=== PATIENT | female | born 1930 ===

== ENCOUNTER 2017-10-31 18:51 | Inpatient (IN) | payer MEDICARE, MEDICAID ==
[2017-10-31] MEDS ORDERED: Ondansetron 40 MG VIAL* 2 MG/ML 20 ML VIAL IV PRN (20:41)
[2017-10-31] MEDS: traMADol TAB* 50 MG PO PRN (21:02)
--- NOTE | 2017-10-31 21:57 | RAD ---
Indication: Fall, head injury. CT of the brain was performed without IV contrast. Ventricular structures are midline. No midline shift is noted. Central and cortical atrophy is noted. Periventricular lucency consistent with chronic ischemic White matter change is noted. Mastoid air cells and paranasal sinuses are unremarkable. IMPRESSION: Atrophy. Chronic ischemic White matter change. No intracranial mass or hemorrhage is present.
--- NOTE | 2017-10-31 21:59 | RAD ---
Indication: Fall, neck injury and neck pain CT of the cervical spine was obtained in the axial plane. Sagittal and coronal reconstructed images were obtained. Skull base demonstrates no evidence of fracture. The C1 ring is intact. Degenerative changes of the atlantoaxial joint is noted. The vertebral bodies appear normal in height. No evidence of fracture is noted. Spinous processes are unremarkable. Spinal canal is intact. At C2-C3 no focal protrusion is noted. No central or foraminal stenosis is noted. Degenerative disc disease at C3-C4 with minimal spondylitic ridge. No central or foraminal stenosis is identified. At C4-C5, C5-C6 minimal degenerative disc disease is noted. No central or foraminal stenosis is noted. Ventral osteophyte formation is noted at C4-C5, C5-C6. At C6-C7 and C7-T1 no spondylitic ridge is noted. No central or foraminal stenosis is identified. IMPRESSION: No fracture of the cervical spine is noted.
--- NOTE | 2017-10-31 22:05 | RAD ---
Indication: Left hip fracture. Preop. Single frontal view of the chest performed at 2144 hours was reviewed. No prior study is available. No mediastinal shift is noted. Heart is of normal size and configuration. Lung galvan appear clear. IMPRESSION: NO ACTIVE CARDIOPULMONARY DISEASE IS NOTED.
[2017-10-31] MEDS: Cyclobenzaprine TAB* 10 MG PO PRN (23:50)
--- NOTE | 2017-10-31 23:51 | HP ---
CC: Dr. Carrillo, Dr. Weber * HISTORY AND PHYSICAL: DATE OF ADMISSION: 10/31/17 PRIMARY CARE PROVIDER: Dr. Carrillo. ATTENDING PHYSICIAN WHILE IN HOSPITAL: Hamilton Knight MD * (report dictated by Asad Live NP) CONSULTING ORTHOPEDIST: Dr. Weber. CHIEF COMPLAINT: Fall. HISTORY OF PRESENT ILLNESS: Mrs. Khanna is an 87-year-old female patient that appears to reside at the [facility]. She has mild dementia, history of hypertension, history of arthritis, but she denies having any history of heart attacks or strokes. She denies having any history of cancers or COPD. She is coming in today, apparently she states that she fell today and I asked her if she slipped, if she tripped, if she fainted, she states all she remembers that she was walking out of her apartment to go to the garden, she fell, landed on her left hip, she could not get up, had a significant amount of pain. She states that she did lose consciousness and faint after she fell. She states that she did not hit her head. She denied having any chest pain or shortness of breath prior to or after. She does state that she can typically walk up a flight of stairs and she does not get chest pain or shortness of breath according to the patient. She does state the last month she had the flu, but since then has not had any worsening cough, shortness of breath, or anymore fevers. She had no episodes of nausea or vomiting with the exception she did have one episode with nausea and vomiting here at [facility]. She denied any chest pain. Her biggest complaint was when she fell and she came to , she knew where she was. She recognized the surrounding. She was hovering for help, staff came to her aid. They called 911 and she went to [facility] where she was found that she had what appeared to be a left femoral neck, hip fracture. At that point, she was transferred to [facility] for further evaluation. Again, there has been no recent change in medications, no recent complaints of chest pain or shortness of breath. There was, however, the syncope after she fell. Because of the fracture, we were asked to evaluate for admission. PAST MEDICAL HISTORY: Significant for: 1. Dementia. 2. Hypertension. 3. Osteoarthritis. 4. Vertigo. PAST SURGICAL HISTORY: She states she knows she has had surgeries, but she cannot really remember what surgery she has had. MEDICATIONS: Home meds according to the [facility] list: 1. Lisinopril 10 mg daily. 2. Aspirin 81 mg daily. ALLERGIES TO MEDICATIONS: Include no known drug allergies. FAMILY HISTORY: She states her mother of old age and she does not really remember her father's history. SOCIAL HISTORY: She does not drink. She does not smoke. She lives at [facility]. She states that surrogate decision maker is her son, Delroy. REVIEW OF SYSTEMS: There is no documented fever. She denies having any significant weight change. There is no double vision. She denies having any ear discharge. There is no rhinorrhea. No sore throat. No thyroid enlargement. She denies having any chest pain. There is no orthopnea. There is no nocturnal dyspnea. She denied having any abdominal pain. There was one episode of nausea and vomiting while she was here at [facility]. She denies having any chest pain or any shortness of breath. There was no again abdominal pain. No dysuria. There has been no frequency. There was a loss of consciousness after the fall. There is no dysuria. No frequency. No seizure. Review of 14 systems was completed, all others negative. PHYSICAL EXAMINATION GENERAL: At this time, Mrs. Gomez is an 87-year-old female patient. She is sitting in the hospital bed. She does not appear to be in any acute distress. VITAL SIGNS: Blood pressure 122/44, pulse of 64, respirations 18, O2 sat 96%, temperature 96.9. HEENT: Head: Atraumatic, normocephalic. Eyes: EOMs are intact. Sclerae anicteric and not pale. Throat: Oral mucosa appears to be moist. No oropharyngeal erythema. NECK: Supple. LUNGS: Clear to auscultation bilaterally. No wheezes, rales, or rhonchi. HEART: Sounds S1, S2. She had a regular rate and rhythm. No murmurs, rubs, or gallops. ABDOMEN: Soft, flat, nontender. Bowel sounds are present. EXTREMITIES: Pulses were 2+ throughout. The left leg is shortened and rotated. Distal CSM checks were intact. NEUROLOGIC: She is oriented to self. She is noxious in the hospital. She is confused to the month. Her speech is clear. Tongue is midline. Hvac Designer were equal. No gross focal deficits. SKIN: Her skin is intact. She does have a skin tear to the left elbow. DIAGNOSTIC STUDIES/LAB DATA: The laboratory data from the [place] revealed labs today she had an EKG that does show a normal sinus rhythm. There are no ST elevations. She had no T-wave inversions. She had a PVC, rate of 77 with a normal sinus rhythm. No previous for comparison. She did have a hip x-ray today, which does show left hip fracture. She did have a sodium of 139, potassium of 4.2, chloride of 103, bicarb of 29, BUN of 15, creatinine of 0.8, glucose 125, calcium 8.8. Total bili is 0.2, AST 20, ALT 15, alk phos 98, troponin 0.07, albumin of 3.2. WBC was 6.62, hemoglobin 13.6, RBC 4.70, hematocrit of 41.4, platelet count of 331. UA was not obtained at this point, one will be obtained here. Old medical records were reviewed. ASSESSMENT AND PLAN: Mrs. Gomez is an 87-year-old female patient coming in from [facility] today with complains of a fall with syncope after the fall according to the patient. We were asked to evaluate for admission after she was found she had a hip fracture. She will be admitted under inpatient status for: 1. Left hip fracture. At this point because of the syncope, I would like to get an echo and a CT brain to make sure there is not any underlying pathology. I suspect the syncope problem was from after she fell and hitting her head, so I would like to CT that brain to make sure it is okay. Also, I would like to do a CT cervical spine as well because of the fall, although she is not having any neck pain, her biggest complaint is left hip pain. I also go and get an echo. Repeat the EKG, cycle troponins, placed on telemetry. If the troponins are stable and the echo appears to be stable, then at this point she would be considered a moderate risk for the proposed procedure and she will be medically optimized. Reason she has moderate risk is because of her advanced age at 87 and history of dementia, but other than that she had no history of coronary artery disease, diabetes, or heart failure and I did touch base with Dr. Weber. I have ordered medications for pain control, neurovascular checks. 2. Dementia. I continue with supportive care, will be on look out for postoperative delirium. 3. Hypertension. I am holding her lisinopril. Blood pressure here stable. 4. Arthritis. I have ordered p.r.n. Tylenol. 5. Code status. She does have a do not resuscitate order in place. I did touch base with the patient's son, who said that that is their wish. He will talk to the patient's [id number] and healthy proxy and discussed that they would like to proceed with the DNR during the proposed procedure. 6. Fluids, electrolytes, and nutrition. Regular diet. Coumadin has been ordered. She will be n.p.o. after midnight. Normal saline at 75 mL/hour has been ordered. TIME SPENT: On admission 60 minutes, greater than half the time spent face-to- face with the patient obtaining my history and physical, other half time spent going over the plan of care with the patient and implementing plan of care. I did discuss the plan of care with my attending, Dr. Knight; he is in agreement. ASAD LIVE NP [id number]/[facility] #: [id number] RAISA
[2017-11-01] MEDS: NS 0.9% 1000 ML* 1,000 ML IV SCH ×2 (00:30→15:39)
[2017-11-01] MEDS: Heparin VIAL(*) 5000 UNITS/ML VIAL (FIVE THOUSAND) SUBCUT SCH ×4 (00:37→22:59)
[2017-11-01 01:12] LABS: INR 0.92 (0.77-1.02)
[2017-11-01 01:24] LABS: EGFR Non-African American 64.7 (>60)
[2017-11-01] MEDS: Morphine VIAL* 4 MG/ML VIAL (1 ml vial) IV PRN ×3 (03:57→16:14)
[2017-11-01 04:32] LABS: ABS Basophils 0 10^3/ul (0-0.2); ABS Eosinophils 0 10^3/ul (0-0.6); ABS Lymphocytes 1.1 10^3/ul (1.0-4.8); ABS Monocytes 0.7 10^3/ul (0-0.8); ABS Neutrophils 10.4 10^3/ul (1.5-7.7); ABS Nucleated RBC 0 10^3/ul; Eosinophil % 0 % (0-6); Hematocrit 36 % (35-47); Hemoglobin 11.7 g/dl (12.0-16.0); Lymphocyte % 8.9 % (25-47); Mean Corpuscular HGB Conc 33 g/dl (31-36); Mean Corpuscular Hemoglobin 29 pg (27-31); Mean Corpuscular Volume 87 fL (80-97); Mean Platelet Volume 8.1 um3 (7.4-10.4); Nucleated Red Blood Cells % 0; Platelet Count 250 10^3/ul (150-450); Red Blood Count 4.12 10^6/ul (4.0-5.4); Red Cell Distribution Width 15 % (10.5-15); White Blood Count 12.3 10^3/ul (3.5-10.8)
[2017-11-01 04:45] LABS: EGFR Non-African American 69.5 (>60)
--- NOTE | 2017-11-01 07:47 | RAD ---
HISTORY: Fall, pain COMPARISONS: None VIEWS: 5, Frontal and lateral views of the left femur FINDINGS: BONE DENSITY: There is diffuse osteopenia. BONES: There is an angulated intertrochanteric fracture of the left femur. JOINTS: There is mild osteoarthritis of the left hip and left knee. ALIGNMENT: There is no dislocation. SOFT TISSUES: Unremarkable. OTHER FINDINGS: None. IMPRESSION: 1. ANGULATED INTERTROCHANTERIC FRACTURE OF THE PROXIMAL LEFT FEMUR. 2. OSTEOPENIA.
--- NOTE | 2017-11-01 10:07 | CONSULT ---
Consult Consult: Full consultation report dictated. Made NPO, held heparin. If medically optimized will plan for short gamma nail today. If surgery is not today will need diet and anticoag overnight then hold again for surgery when rescheduled.
--- NOTE | 2017-11-01 10:53 | ECHO ---
Patient: NADYA ROBERTS [facility] Rec#: [id number] : 1930 Date: 11/01/2017 Age: 87y Height: 170 cm / 66.9 in Weight: 60 kg / 132.2 lbs Sex: F BSA: 1.7 Room#: [facility] Admit Date#: 10/31/2017 Type: Inpatient Referring: Asad Live NP Reading: Camila Colmenares MD [place] Winder: Olivia Rincon RN RDCS CC: Jane Carrillo MD Transthoracic Echocardiogram Indication: Syncope BP: 154/60 HR: 71 Rhythm: NSR with PVCs Findings History: HTN, mild dementia, vertigo, osteoarthritis, admitted with left hip fracture Technical Comments: The study quality is fair. The study was technically limited due to the patient's inability to lay in the left lateral decubitus position. Completed at 0910. Left Ventricle: The left ventricular chamber size is decreased. Moderate concentric left ventricular hypertrophy is observed. There is increased basal septal hypertrophy noted without evidence of an increased gradient across the left ventricular outflow tract. Global left ventricular wall motion and contractility are within normal limits. The left ventricle appears hyperdynamic. The estimated ejection fraction is greater than 65%. Abnormal left ventricular diastolic filling is observed, consistent with impaired relaxation. The patient was unable to perform a Valsalva maneuver. Left Atrium: The left atrium is moderately dilated. Right Ventricle: The right ventricular cavity size is normal. The right ventricular global systolic function is normal. Right Atrium: The right atrium is mildly dilated. There is evidence of an atrial septal aneurysm. Aortic Valve: The aortic valve is trileaflet. The aortic valve leaflets are mildly thickened. There is aortic annular calcification. There is mild aortic regurgitation. There is no evidence of aortic stenosis. Mitral Valve: There is posterior mitral annular calcification. The mitral valve leaflets are mildly thickened. There is a trace of mitral regurgitation. There is borderline mitral stenosis. Tricuspid Valve: The tricuspid valve leaflets are normal. There is moderate tricuspid regurgitation. The right ventricular systolic pressure is estimated at 46 mmHg. There is evidence of moderate pulmonary hypertension. Pulmonic Valve: The pulmonic valve appears normal. There is mild to moderate pulmonic regurgitation. There is no pulmonic stenosis. Pericardium: There is no significant pericardial effusion. A pericardial fat pad is visualized. Aorta: There is no dilatation of the ascending aorta. The aortic arch is not well visualized. There is no dilation of the aortic root. Pulmonary Artery: The main pulmonary artery appears normal. Venous: The venous system is not well visualized. The inferior vena cava is not visualized. Conclusions The left ventricular chamber size is decreased. Moderate concentric left ventricular hypertrophy and increased basal septal hypertrophy noted No gradient across the left ventricular outflow tract. The left ventricle appears hyperdynamic. The estimated ejection fraction is greater than 65%. Abnormal left ventricular diastolic filling is observed, consistent with impaired relaxation. The right ventricular global systolic function is normal. There is mild aortic regurgitation. There is mitral annular calcification. There is a trace of mitral regurgitation. There is borderline mitral stenosis. There is moderate tricuspid regurgitation. There is evidence of moderate pulmonary hypertension: 46 mmHg. No prior echo to compare. Measurements Name Value Normal Range RVIDd (AP) 2D 2.4 cm (0.9 - 2.6) RVDdMajor (2D) 2.9 cm (2.2 - 4.4) RAd ISD 4CH 5.1 cm (3.4 - 4.9) RA (A4C)W 3.5 cm (2.9 - 4.6) IVSd (2D) 1.3 cm (0.6 - 1) LVPWd (2D) 1.3 cm (0.6 - 1) LVIDd (2D) 3.2 cm (3.6 - 5.4) LVIDs (2D) 2.2 cm - LV FS (2D) 31 % (25 - 45) Aortic Annulus 1.8 cm (1.4 - 2.6) Ao root diameter (2D) 3 cm (2.1 - 3.5) Ascending Ao 3.1 cm (2.1 - 3.4) LA dimension (AP) 2D 3 cm (2.3 - 3.8) LAd ISD 4CH 6.4 cm (2.9 - 5.3) LA ISD 4CH W 4.4 cm (2.5 - 4.5) Name Value Normal Range LA ESV SP 4CH (A/L) 68 ml - LA ESV SP 2CH (A/L) 77 ml - LA ESV BP (A/L) 75 ml - LA ESV BP (A/L) index 44.1 ml/m2 - LA ESV SP 4CH (MOD) 66 ml - LA ESV SP 2CH (MOD) 73 ml - Name Value Normal Range MV E-wave Vmax 0.86 m/sec - MV deceleration time 321 msec - MV A-wave Vmax 1.2 m/sec - MV E:A ratio 0.7 ratio - LV septal e' Vmax 0.06 m/sec - LV lateral e' Vmax 0.07 m/sec - LV E:e' septal ratio 14.3 ratio - LV E:e' lateral ratio 12.3 ratio - Name Value Normal Range AV Vmax 1.7 m/sec - AV VTI 34.2 cm - AV peak gradient 11.1 mmHg - AV mean gradient 5.8 mmHg - LVOT Vmax 1.3 m/sec - LVOT VTI 26.2 cm - LVOT peak gradient 6.7 mmHg - LVOT mean gradient 4.2 mmHg - Name Value Normal Range MV Vmax 1.4 m/sec - MV VTI 31 cm - MV peak gradient 7.8 mmHg - MV mean gradient 2.9 mmHg - MV PHT 98 msec - MVA (PHT) 2.2 cm2 - Name Value Normal Range TR Vmax 3.1 m/sec - TR peak gradient 38 mmHg - RAP 8 mmHg - RVSP 46 mmHg - Name Value Normal Range PV Vmax 1.1 m/sec -
[2017-11-01] MEDS: Cyclobenzaprine TAB* 10 MG PO PRN (11:03)
--- NOTE | 2017-11-01 12:00 | PN ---
Subjective Date of Service: 11/01/17 Interval History: Patient seen and examined. Confused, but appropriate and can make needs known. Staff had difficulty with Dr. Richelle collins at bedside for placement. Denies chest pain, no SOB, no n/v. Patient states her hip is "sore". Objective Active Medications: Acetaminophen (Tylenol Tab*) 650 mg PO Q4H PRN PRN Reason: FEVER/PAIN Cyclobenzaprine HCl (Flexeril Tab*) 5 mg PO BID PRN PRN Reason: SPASMS Last Admin: 11/01/17 11:03 Dose: 5 mg Sodium Chloride (Ns 0.9% 1000 Ml*) 1,000 mls @ 75 mls/hr IV PER RATE TAYLER Last Admin: 11/01/17 00:30 Dose: 75 mls/hr Morphine Sulfate (Morphine Vial*) 1 mg IV Q4H PRN PRN Reason: PAIN - MILD Last Admin: 11/01/17 08:41 Dose: 1 mg Ondansetron HCl (Zofran 40 Mg Vial*) 4 mg IV Q6H PRN PRN Reason: NAUSEA Last Admin: 10/31/17 20:43 Dose: 4 mg Tramadol HCl (Ultram*) 25 mg PO Q8H PRN PRN Reason: PAIN Last Admin: 10/31/17 21:02 Dose: 25 mg Vital Signs - 8 hr 11/01/17 11/01/17 11/01/17 03:57 04:06 04:07 Temperature Pulse Rate Respiratory 18 18 18 Rate Blood Pressure (mmHg) O2 Sat by Pulse Oximetry 11/01/17 11/01/17 11/01/17 07:16 07:17 08:41 Temperature 98.2 F Pulse Rate 73 Respiratory 18 18 16 Rate Blood Pressure 128/48 (mmHg) O2 Sat by Pulse 96 Oximetry 11/01/17 11/01/17 11/01/17 08:42 10:28 11:03 Temperature Pulse Rate Respiratory 18 18 18 Rate Blood Pressure (mmHg) O2 Sat by Pulse Oximetry 11/01/17 11:20 Temperature 98.3 F Pulse Rate 75 Respiratory 18 Rate Blood Pressure 147/60 (mmHg) O2 Sat by Pulse 98 Oximetry Oxygen Devices in Use Now: None Appearance: Alert, baseline confusion Eyes: PERRLA Ears/Nose/Mouth/Throat: Mucous Membranes Moist Neck: NL Appearance and Movements; NL JVP, Trachea Midline Respiratory: Symmetrical Chest Expansion and Respiratory Effort, Clear to Auscultation Cardiovascular: NL Sounds; No Murmurs; No JVD, RRR Abdominal: NL Sounds; No Tenderness; No Distention Extremities: No Edema, No Clubbing, Cyanosis Neurological: - - confused, but answers appropriately Nutrition: - - NPO Result Diagrams: 11/01/17 04:20 11/01/17 04:20 Microbiology and Other Data: Microbiology 11/01/17 03:40 Nasal Screen MRSA (PCR)(DAVID) - Final Nasal Mrsa Not Detected Diagnostic Imaging: CARDIAC ECHO Conclusions The left ventricular chamber size is decreased. Moderate concentric left ventricular hypertrophy and increased basal septal hypertrophy noted No gradient across the left ventricular outflow tract. The left ventricle appears hyperdynamic. The estimated ejection fraction is greater than 65%. Abnormal left ventricular diastolic filling is observed, consistent with impaired relaxation. The right ventricular global systolic function is normal. There is mild aortic regurgitation. There is mitral annular calcification. There is a trace of mitral regurgitation. There is borderline mitral stenosis. There is moderate tricuspid regurgitation. There is evidence of moderate pulmonary hypertension: 46 mmHg. No prior echo to compare. Assess/Plan/Problems-Billing Assessment: This is an 87 year old female with history of dementia.. - Patient Problems (1) Intertrochanteric fracture of left hip Code(s): S72.142A - DISPLACED INTERTROCHANTERIC FRACTURE OF LEFT FEMUR, INIT SNOMED Code(s): 515613800 Comment: - Questionable syncope at time of fall - ECHO as above - EKG was junctional last night, appear to have P waves on tele today - CT brain and cspine negative for any acute process - Sugar is elevated but patient states no hx of diabetes but she is a poor historian, will place on lispro SS to aid in post op healing - Collins placed by Dr. Peoples, as nursing staff had issues placing cath - Plan for OR today as per ortho for gamma nail - Given advanced age and dementia, the patient is at least moderate risk, or 2.3% CV risk for procedure given above factors. Standard surgical risks and complications should be handled by surgical team and are outside the scope of this medical evaluation. - Recommend close post-operative monitoring and DVT prophylaxis, IS and early ambulation to minimize post-operative complications - Patient is a full code as per chart notes, family is not present for me to discuss with them (2) Dementia Code(s): F03.90 - UNSPECIFIED DEMENTIA WITHOUT BEHAVIORAL DISTURBANCE SNOMED Code(s): 54558923 Comment: - Higher risk for post-operative delerium, would limit narcotics as is feasible (3) Hypertension Code(s): I10 - ESSENTIAL (PRIMARY) HYPERTENSION SNOMED Code(s): 68240834 Comment: - On lisinopril at home - BP stable at present, monitor BP post op (4) DVT prophylaxis Code(s): FQZ4202 - SNOMED Code(s): 240710338 Comment: - As per ortho (5) Full code status Code(s): Z78.9 - OTHER SPECIFIED HEALTH STATUS SNOMED Code(s): 251835985 Status and Disposition: Coordinated with Arlette Mccauley PA-c.
[2017-11-01] MEDS ORDERED: Dextrose 50% Syringe 50 ML* 25 GM/50 ML SYRINGE IV PUSH PRN (12:07)
--- NOTE | 2017-11-01 14:24 | CONS ---
CONSULTATION REPORT: DATE OF CONSULT: 11/01/17 PROVIDER: Vipin Weber MD. PRIMARY CARE PROVIDER: Dr. Carrillo. CHIEF COMPLAINT: Fall at home. HISTORY OF PRESENT ILLNESS: Ms. Khanna is an 87-year-old female who is a resident at the [facility]. She lives there independently, but this is an assisted living facility in which she gets help with all of her daily activities. She walks with a walker on her own inside of the house. She is supposed to have assistance when going outside of the house, but she does sometimes leave her home to go outside with her walker without assistance. She has a history of dementia, hypertension, arthritis. The patient states that she was leaving her house to go outside when she fell. She does not recall if she fainted, if she tripped. She simply states that she went outside, fell, does not recall losing consciousness, hitting her head, or hurting any other area, but she was unable to get up and had to call for help. She was first brought to the [facility] where she was diagnosed with a left femoral neck fracture. She was transported to [facility], diagnosed with angulated intertrochanteric fracture of the proximal left femur and was admitted to the hospital. Today, the patient states that she has left lower extremity pain, worse with movement, better with rest. She reports that she does not have any pain anywhere else in her right leg or in her upper extremities. She denies any chest pain or shortness of breath. The patient's history was confirmed with her sons, Delroy and Jack, who were in the room as well. PAST MEDICAL HISTORY: Significant for dementia, hypertension, osteoarthritis, and vertigo. PAST SURGICAL HISTORY: The patient had some sort of abdominal surgery. She has a midline scar, but she does not remember what it is from. She does not report any issues with anesthesia. MEDICATIONS: Lisinopril 10 mg and aspirin 81 mg daily. ALLERGIES TO MEDICATIONS: No known drug allergies, though did not tolerate morphine when given during this hospital stay; her blood pressure dropped significantly. FAMILY HISTORY: Mother passed of old age. SOCIAL HISTORY: The patient does not drink. She does not smoke. She uses a walker to ambulate at home. She does ambulate outside of her home with her walker short distances, but she is supposed to have assistance from another person for this. REVIEW OF SYSTEMS: Difficult to gauge due to dementia. General: The patient does not have a documented fever. HEENT: She reports that she did not hit her head. Cardio: Denies any chest pain. Denies any history of heart attack. Respiratory: Denies any difficulty breathing. GI: Denies any abdominal pain. Denies nausea, vomiting, or diarrhea. Skin: Known skin tear on the left elbow. PHYSICAL EXAM: Vital Signs: Temperature 98.2, pulse rate 73, respiratory rate 18, oxygen saturation 96%, blood pressure 128/48. General: The patient is lying comfortably in bed. She does not appear to be in any distress. She does vocalize that she does not want her left leg touched due to pain. HEENT: Head atraumatic, normocephalic. Eyes: EOMI. Neck: Cervical spine nontender. Respiratory: Normal rate and effort of breathing. Heart: S1, S2. Regular rhythm. Abdomen: Bowel sounds normoactive throughout. Soft, nontender, without any masses. Midline well healed surgical abdominal scar from the umbilicus down to the pubic region. Extremities: 2+ dorsalis pedis pulse bilateral lower extremities. The patient is in bed with both knees and hips flexed. Skin without any open lesions, abrasions, or ecchymosis. No obvious deformity. She did demonstrate active motion of the left ankle, knee, and hip, though much pain with left hip range of motion. Calves are supple and nontender. Thighs are soft. Skin: The patient has a skin tear of the left elbow. Neurologic: The patient is confused, but she carries on relatively appropriate conversation. Her history report is seemingly accurate for some point in her life but not current, such that she states that she still lives with her son, Jack. When confirmed with family, she now lives in [place] and used to live with her son, Jack. Her history is unreliable at this time. DIAGNOSTIC STUDIES/LAB DATA: Femur x-ray demonstrates an angulated intertrochanteric fracture of the proximal left femur and osteopenia. Cervical spine x-ray, no fracture of the cervical spine is noted. Chest x-ray, no active cardiopulmonary disease noted. Brain CT, atrophy, chronic ischemic white matter change, no intracranial mass or hemorrhage present. EKG, junctional rhythm present, absent P waves, slow , nonspecific interventricular conduction delay. ASSESSMENT: Angulated intertrochanteric fracture of the proximal left femur with osteopenia as well. PLAN: The patient will have an echo and troponins. She is on telemetry. We will await echo results and interpretation for medical optimization from medicine. The patient will be n.p.o. for now. We will hold her anticoagulation. She will go to the operating room for a Gamma nail with Dr. Weber on 11/01/17 if she is medically optimized and if not we will aim for 12/13. This case was discussed with both the patient's sons, Jack and Delroy, who understand that they will need to be present in order to sign consents prior to any surgical proceeding. KIERA BERNAL [id number]/CPS #: [id number] MTDD
[2017-11-01] MEDS: Insulin LISPRO* 1 UNITS UNIT SUBCUT SCH ×2 (17:38→22:16)
[2017-11-01] MEDS: traMADol TAB* 50 MG PO PRN (17:43)
[2017-11-01 18:24] LABS: ABS Basophils 0 10^3/ul (0-0.2); ABS Eosinophils 0 10^3/ul (0-0.6); ABS Lymphocytes 1.1 10^3/ul (1.0-4.8); ABS Neutrophils 9.1 10^3/ul (1.5-7.7); ABS Nucleated RBC 0 10^3/ul; Eosinophil % 0 % (0-6); Hematocrit 35 % (35-47); Hemoglobin 11.6 g/dl (12.0-16.0); Lymphocyte % 9.6 % (25-47); Mean Corpuscular HGB Conc 33 g/dl (31-36); Mean Corpuscular Hemoglobin 29 pg (27-31); Mean Corpuscular Volume 87 fL (80-97); Mean Platelet Volume 8.1 um3 (7.4-10.4); Nucleated Red Blood Cells % 0; Platelet Count 261 10^3/ul (150-450); Red Blood Count 4.05 10^6/ul (4.0-5.4); Red Cell Distribution Width 15 % (10.5-15); White Blood Count 11.2 10^3/ul (3.5-10.8)
[2017-11-01 18:33] LABS: EGFR Non-African American 67.5 (>60)
[2017-11-01 18:36] LABS: INR 0.9 (0.77-1.02)
[2017-11-02 06:23] LABS: ABS Basophils 0.1 10^3/ul (0-0.2); ABS Eosinophils 0 10^3/ul (0-0.6); ABS Lymphocytes 1.7 10^3/ul (1.0-4.8); ABS Monocytes 1.3 10^3/ul (0-0.8); ABS Neutrophils 7.8 10^3/ul (1.5-7.7); ABS Nucleated RBC 0 10^3/ul; Eosinophil % 0.2 % (0-6); Hematocrit 34 % (35-47); Hemoglobin 11.3 g/dl (12.0-16.0); Lymphocyte % 15.2 % (25-47); Mean Corpuscular HGB Conc 34 g/dl (31-36); Mean Corpuscular Hemoglobin 29 pg (27-31); Mean Corpuscular Volume 86 fL (80-97); Mean Platelet Volume 8.1 um3 (7.4-10.4); Nucleated Red Blood Cells % 0; Platelet Count 204 10^3/ul (150-450); Red Blood Count 3.92 10^6/ul (4.0-5.4); Red Cell Distribution Width 15 % (10.5-15); White Blood Count 10.9 10^3/ul (3.5-10.8)
[2017-11-02 06:55] LABS: EGFR Non-African American 97.9 (>60)
[2017-11-02 06:57] LABS: INR 0.94 (0.77-1.02)
[2017-11-02] MEDS ORDERED: Famotidine IV* 10 MG/ML 2 ML (20 mg) IV ONE (07:00)
[2017-11-02] MEDS: Insulin LISPRO* 1 UNITS UNIT SUBCUT SCH ×4 (08:04→23:06)
[2017-11-02] MEDS: Morphine VIAL* 4 MG/ML VIAL (1 ml vial) IV PRN ×2 (08:15→12:46)
[2017-11-02] MEDS: Cyclobenzaprine TAB* 10 MG PO PRN (08:16)
[2017-11-02] MEDS ORDERED: fentaNYL* 50 MCG/ML 2 ML VIAL (100 MCG VIAL) ONE (12:06)
[2017-11-02] MEDS ORDERED: Midazolam* 1 MG/ML 5 ML VIAL (5 MG) ONE (12:07)
[2017-11-02] MEDS ORDERED: KETAMINE HCL* 50 MG/ML 10 ML VIAL ONE (12:07)
[2017-11-02] MEDS ORDERED: Glycopyrrolate IV* 0.2 MG/ML 1 ML VIAL ONE (12:13)
[2017-11-02] MEDS ORDERED: EPHEDrine (Pressors)* 50 MG/ML VIAL ONE (12:13)
[2017-11-02] MEDS ORDERED: Morphine INJ* 10 MG/ML 1 ML CARPUJECT ONE (12:39)
[2017-11-02] MEDS ORDERED: ceFAZolin 2 GM PREMIX (*) 2 GM/50 ML BAG IVPB ONE (13:07)
[2017-11-02] MEDS ORDERED: Bupivacaine 0.5% SDV PF* 30ML VIAL ONE (13:12)
--- NOTE | 2017-11-02 13:14 | PN ---
Progress Note - Progress Note Date of Service: 11/02/17 Note: Patricia is an 87-year-old woman who sustained a left hip fracture. Please see Arlette Mccauley' H&P for full orthopedic details. I was asked by one of my colleagues, Dr. Weber, if I could help with her care. In brief, she has a closed left hip fracture. Exam is consistent with this, as the left lower extremity is shortened and externally rotated. She has pain with logroll and heel strike. I discussed both nonoperative and operative treatment options with her and her family at length today. We discussed the risks associated with surgery at length. They expressed their desire to move forward with open reduction and internal fixation of the left hip. We will plan on doing this this afternoon as she has been cleared medically. Informed consent was obtained. All questions were answered. Rajan London MD
[2017-11-02] MEDS ORDERED: Propofol* 10 MG/ML 20 ML BTL IV PUSH ONE (14:27)
[2017-11-02] MEDS ORDERED: Phenylephrine INJ* 10 MG/ML 1 ML VIAL (10 MG) ONE (14:28)
[2017-11-02] MEDS ORDERED: Chloroprocaine 2%* 20 ML VIAL ONE (14:28)
[2017-11-02] MEDS ORDERED: Naloxone* 0.4 MG/ML 1 ML VIAL IV PRN (14:35)
[2017-11-02] MEDS ORDERED: fentaNYL* 50 MCG/ML 2 ML VIAL (100 MCG VIAL) IV PRN (14:35)
--- NOTE | 2017-11-02 14:48 | OP ---
Operative Report - Blank - Operative Report Date of Operation: 11/02/17 Note: PATIENT: Patricia Khanna DATE OF : 1930 DATE OF SURGERY: 11/02/2017 SURGEON: Rajan London MD PLAYGROUND SUPERVISOR: KIERA Pool, whos assistance was necessary for positioning, retraction, help with instrumentation, and closure. ANESTHESIOLOGIST: Dr. Guerrero PREOPERATIVE DIAGNOSIS: Left intertrochanteric hip fracture. POSTOPERATIVE DIAGNOSIS: Left intertrochanteric hip fracture. PROCEDURE: Open reduction and internal fixation of the left hip fracture utilizing a cephalomedullary nail. ANESTHESIA: Spinal IMPLANTS: Ava gamma nail measuring 50c195 mm with 125 degree neck shaft angle, 100 mm lag screw, and 35 mm distal interlocking screw. ESTIMATED BLOOD LOSS: 100cc SPECIMENS: None. DRAIN: None TOURNIQUET TIME: None. COMPLICATIONS: None. STATUS: Stable from the operating room to the recovery room and then readmitted to the floor. INDICATIONS FOR PROCEDURE: Patricia sustained a fall and a left hip fracture. Both operative and non operative treatment alternatives were reviewed. Further, the nature and risks of surgery were reviewed in careful detail, in the office as well as the pre-operative holding area. Our discussions regarding the risks of surgery included, but were not limited to, bleeding, need for blood transfusion, infection, wound problems, malunion, nonunion, nerve injury, neuroma, RSD, persistent symptoms, need for further surgery and even the remote chance of catastrophic complication, including loss of limb or . DESCRIPTION OF PROCEDURE: The patient was seen in the preoperative holding unit and informed written consent was obtained. The appropriate extremity was marked. The patient was then brought to the operating room anesthesia was induced. The patient was then carefully positioned on the fracture table and all bony prominences were padded with great care. We fluoroscopically assessed the fracture and pulled traction to gain a reduction. A chlorhexidine-based pre- scrub was performed followed by prep and drape in standard sterile fashion with ChloraPrep. A surgical safety pause was then conducted in which we confirmed the appropriate patient, extremity, planned procedure, availability of equipment , indication and administration of prophylactic antibiotics, and DVT prophylaxis in the form of a compression boot on the non-surgical extremity. I made an approximately 3-cm incision in line with the femur proximal to the greater trochanter. I carried the dissection down through the soft tissue and found the starting point on the greater trochanter utilizing the guidewire. This was confirmed fluoroscopically. I tapped the guidewire into proper position and then confirmed the position of the guidewire fluoroscopically. At this point, I overdrilled utilizing the starting reamer. This was done with fluoroscopic guidance as well. I then passed the short nail into appropriate position and gently tapped this down. The reduction was maintained during this portion of the procedure. I placed a guidewire up into the femoral neck and confirmed that this was center-center within the femoral head. I then measured the length of the guidewire and overdrilled this. I then placed the screw up into the femoral head. I confirmed that this was in the appropriate position utilizing multiple views fluoroscopically. I then locked this lag screw into place. At this point, I placed a single static interlocking screw distally into the nail utilizing the guide. At this point, I removed the guide arm and obtained final fluoroscopic images. I was pleased with the reduction and the position of the hardware. I irrigated copiously and closed in layers utilizing 0 Vicryl for the deep layer, 2-0 Vicryl for the Vaibhav's and superficial layers , and merle for the skin. A sterile dressing was then applied. At this point, the patient was carefully transitioned off of the fracture table and awakened from anesthesia. There were no complications. All needle and sponge counts were correct at the end of the case. ATTESTATION: I attest I was present and scrubbed and performed the entire procedure myself. POSTOPERATIVE PLAN: The patient will be admitted back to the medical service postoperatively and may be weightbearing as tolerated and will work with physical therapy. DVT prophylaxis with Lovenox 40 mg sc daily for 1 month is recommended.
--- NOTE | 2017-11-02 15:31 | RAD ---
HISTORY: LEFT HIP GAMMA NAIL, left hip fracture, fall COMPARISONS: October 31, 2017 TECHNIQUE: Fluoroscopy was provided for a surgical procedure. Total fluoroscopy time is: 44.1 seconds FINDINGS: Spot images demonstrate internal fixation of the femur. IMPRESSION: FLUOROSCOPY WAS PROVIDED FOR A SURGICAL PROCEDURE CPT II Codes: G9500
[2017-11-02] MEDS: NS 0.9% 1000 ML* 1,000 ML IV SCH ×3 (16:16→22:57)
[2017-11-02] MEDS: traMADol TAB* 50 MG PO PRN (16:23)
--- NOTE | 2017-11-02 17:14 | PN ---
Subjective Date of Service: 11/02/17 Interval History: Patient seen and examined post-operatively. Remains confused, unable to answer questions appropriately - likely combination of anesthesia and baseline cognitive impairment. Appears comfortable otherwise. Objective Active Medications: Acetaminophen (Tylenol Tab*) 650 mg PO Q4H PRN PRN Reason: FEVER/PAIN Cyclobenzaprine HCl (Flexeril Tab*) 5 mg PO BID PRN PRN Reason: SPASMS Last Admin: 11/02/17 08:16 Dose: 5 mg Dextrose (D50w Syringe 50 Ml*) 12.5 gm IV PUSH .FOR FS < 60 - SS PRN PRN Reason: FS < 60 Sodium Chloride (Ns 0.9% 1000 Ml*) 1,000 mls @ 50 mls/hr IV PER RATE TAYLER Last Admin: 11/02/17 16:16 Dose: 50 mls/hr Cefazolin Sodium/Dextrose (Kefzol 1 Gm In Dextrose Duplex (*)) 1 gm in 50 mls @ 200 mls/hr IVPB Q8H TAYLER Insulin Human Lispro (Humalog*) 0 units SUBCUT ACHS TAYLER PRN Reason: Protocol Last Admin: 11/02/17 16:33 Dose: Not Given Morphine Sulfate (Morphine Vial*) 1 mg IV Q4H PRN PRN Reason: PAIN - MILD Last Admin: 11/02/17 12:46 Dose: 1 mg Naloxone HCl (Narcan*) 0.08 mg IV Q2M PRN PRN Reason: severe induced resp depression Stop: 11/03/17 14:34 Ondansetron HCl (Zofran 40 Mg Vial*) 4 mg IV Q6H PRN PRN Reason: NAUSEA Last Admin: 10/31/17 20:43 Dose: 4 mg Tramadol HCl (Ultram*) 25 mg PO Q8H PRN PRN Reason: PAIN Last Admin: 11/02/17 16:23 Dose: 25 mg Vital Signs - 8 hr 11/02/17 11/02/17 11/02/17 09:49 10:17 12:46 Temperature Pulse Rate Respiratory 18 18 16 Rate Blood Pressure (mmHg) O2 Sat by Pulse Oximetry 11/02/17 11/02/17 11/02/17 14:45 14:47 14:48 Temperature 98.4 F Pulse Rate 123 90 Respiratory 20 Rate Blood Pressure 165/84 (mmHg) O2 Sat by Pulse 77 92 98 Oximetry 06/07/18 06/07/18 06/07/18 14:51 14:56 15:00 Temperature Pulse Rate 90 86 79 Respiratory Rate Blood Pressure 141/81 148/62 145/62 (mmHg) O2 Sat by Pulse 95 96 96 Oximetry 11/02/17 11/02/17 11/02/17 15:16 15:31 16:00 Temperature Pulse Rate 83 80 Respiratory Rate Blood Pressure 142/56 103/78 (mmHg) O2 Sat by Pulse 95 94 Oximetry 11/02/17 11/02/17 11/02/17 16:23 16:58 17:05 Temperature 98.2 F 97.5 F Pulse Rate 85 87 Respiratory 16 16 16 Rate Blood Pressure 100/86 107/81 (mmHg) O2 Sat by Pulse 100 94 Oximetry Oxygen Devices in Use Now: None Appearance: NAD Eyes: No Scleral Icterus Ears/Nose/Mouth/Throat: - - dry oral mucose Neck: NL Appearance and Movements; NL JVP Respiratory: Symmetrical Chest Expansion and Respiratory Effort, Clear to Auscultation Cardiovascular: NL Sounds; No Murmurs; No JVD, RRR Extremities: No Clubbing, Cyanosis Neurological: - - confused, answers to name, tracks Nutrition: - - NPO since this AM Result Diagrams: 11/02/17 06:15 11/02/17 06:06 Microbiology and Other Data: Microbiology 11/01/17 03:40 Nasal Screen MRSA (PCR)(DAVID) - Final Nasal Mrsa Not Detected Diagnostic Imaging: CARDIAC ECHO Conclusions The left ventricular chamber size is decreased. Moderate concentric left ventricular hypertrophy and increased basal septal hypertrophy noted No gradient across the left ventricular outflow tract. The left ventricle appears hyperdynamic. The estimated ejection fraction is greater than 65%. Abnormal left ventricular diastolic filling is observed, consistent with impaired relaxation. The right ventricular global systolic function is normal. There is mild aortic regurgitation. There is mitral annular calcification. There is a trace of mitral regurgitation. There is borderline mitral stenosis. There is moderate tricuspid regurgitation. There is evidence of moderate pulmonary hypertension: 46 mmHg. No prior echo to compare. Assess/Plan/Problems-Billing Assessment: This is an 87 year old female with history of mild dementia that presented with fall and intertroch fracture from [facility], POD0. - Patient Problems (1) Intertrochanteric fracture of left hip Code(s): S72.142A - DISPLACED INTERTROCHANTERIC FRACTURE OF LEFT FEMUR, INIT SNOMED Code(s): 150805739 Comment: - POD0 IM Nail with Dr. London - Pain control - Bowel regimen - DVT prophy as per ortho - Continue tele for 24 hours post op (2) Dementia Code(s): F03.90 - UNSPECIFIED DEMENTIA WITHOUT BEHAVIORAL DISTURBANCE SNOMED Code(s): 71900650 Comment: - Higher risk for post-operative delerium, would limit narcotics as is feasible (3) Hypertension Code(s): I10 - ESSENTIAL (PRIMARY) HYPERTENSION SNOMED Code(s): 37013204 Comment: - On lisinopril at home - BP stable at present, monitor BP post op, mildly hypotensive (4) DVT prophylaxis Code(s): JKU1879 - SNOMED Code(s): 244898156 Comment: - As per ortho (5) Full code status Code(s): Z78.9 - OTHER SPECIFIED HEALTH STATUS SNOMED Code(s): 934988031 Status and Disposition: Remain inpatient.
[2017-11-02] MEDS ORDERED: Metoprolol Tartrate IV* 1 MG/ML 5 ML VIAL ONE (21:37)
[2017-11-02] MEDS ORDERED: Metoprolol Tartrate IV* 1 MG/ML 5 ML VIAL IV PRN (21:42)
[2017-11-02] MEDS ORDERED: Diltiazem IV* 5 MG/ML 5 ML VIAL (for loading dose/IV Push) (25 MG) IV SLOW PU ONE (21:51)
--- NOTE | 2017-11-02 21:59 | PN ---
Hospitalist Progress Note Date of Service: 11/02/17 Called to bedside for complaints of irregular HR, HR 150, BP 130/40, EKG obtained diffused st depression suspect related reated, patient complaining of palpitations and left hip pain, pt s/p IM nail today, lungs cta, Heart rate irregular irregular, given 5mg iv lopressor, hr 130's, echo ef 65 percent, transfer to [facility], will push 10mg diltazem and start drip at 5mg/hr, checking cbc, trop, bmp mag, tsh,
[2017-11-02] MEDS ORDERED: Diltiazem DRIP* 100 MG/100 ML ADDV.BAG IVPB SCH (22:00)
[2017-11-02] MEDS ORDERED: Diltiazem IV VIAL* 125 MG in NS 0.9% 100 ML* 100 ML IV SCH (22:00)
[2017-11-02 22:10] LABS: ABS Basophils 0 10^3/ul (0-0.2); ABS Eosinophils 0 10^3/ul (0-0.6); ABS Lymphocytes 0.9 10^3/ul (1.0-4.8); ABS Monocytes 1.1 10^3/ul (0-0.8); ABS Neutrophils 11.8 10^3/ul (1.5-7.7); ABS Nucleated RBC 0 10^3/ul; Eosinophil % 0 % (0-6); Hematocrit 29 % (35-47); Hemoglobin 9.7 g/dl (12.0-16.0); Lymphocyte % 6.5 % (25-47); Mean Corpuscular HGB Conc 33 g/dl (31-36); Mean Corpuscular Hemoglobin 29 pg (27-31); Mean Corpuscular Volume 87 fL (80-97); Mean Platelet Volume 8.3 um3 (7.4-10.4); Nucleated Red Blood Cells % 0.1; Platelet Count 228 10^3/ul (150-450); Red Blood Count 3.38 10^6/ul (4.0-5.4); Red Cell Distribution Width 15 % (10.5-15); White Blood Count 13.8 10^3/ul (3.5-10.8)
[2017-11-02 22:21] LABS: EGFR Non-African American 90.6 (>60)
[2017-11-02] MEDS ORDERED: Magnesium Sulfate 2 GM IV* 2 GM/50 ML BAG IVPB ONE (22:27)
[2017-11-02] MEDS ORDERED: Potassium Chlor TAB* 20 MEQ TAB.ER PO ONE (22:28)
[2017-11-03] MEDS: ceFAZolin 1 GM in Dextrose (*) 1 GM/50 ML BAG IVPB SCH ×4 (00:19→21:28)
[2017-11-03 05:57] LABS: ABS Basophils 0 10^3/ul (0-0.2); ABS Eosinophils 0 10^3/ul (0-0.6); ABS Lymphocytes 1.4 10^3/ul (1.0-4.8); ABS Monocytes 1.4 10^3/ul (0-0.8); ABS Neutrophils 7.5 10^3/ul (1.5-7.7); ABS Nucleated RBC 0 10^3/ul; Eosinophil % 0 % (0-6); Hematocrit 25 % (35-47); Hemoglobin 8.3 g/dl (12.0-16.0); Lymphocyte % 13.8 % (25-47); Mean Corpuscular HGB Conc 34 g/dl (31-36); Mean Corpuscular Hemoglobin 29 pg (27-31); Mean Corpuscular Volume 87 fL (80-97); Mean Platelet Volume 8.2 um3 (7.4-10.4); Nucleated Red Blood Cells % 0; Platelet Count 193 10^3/ul (150-450); Red Blood Count 2.85 10^6/ul (4.0-5.4); Red Cell Distribution Width 14 % (10.5-15); White Blood Count 10.4 10^3/ul (3.5-10.8)
[2017-11-03] MEDS: Insulin LISPRO* 1 UNITS UNIT SUBCUT SCH ×4 (07:20→21:16)
--- NOTE | 2017-11-03 09:27 | PN ---
Progress Note - Progress Note Date of Service: 11/03/17 SOAP: Subjective: 87 y/o female s/p ORIF with cep nailing by Dr. London 11/02. Transferred to due to irregular heart rate last night. patient confused, at baseline, no complaints. Objective: General- Well appearing, resting in bed comfortably, NAD, AO MSK- Surgical dressing intact, surrounding skin without erythema, induration, + DF/PF, PT 1+, moderate edema. Vital Signs Temp 98.2 F 11/03/17 15:41 Pulse 85 11/03/17 15:41 Resp 18 11/03/17 15:41 BP 136/50 11/03/17 15:41 Pulse Ox 93 11/03/17 11:00 Intake & Output 11/02/17 11/03/17 11/03/17 18:59 06:59 18:59 Intake Total 950 1044 1022 Output Total 450 175 Balance 653 827 7852 Intake: IV Fluids 900 1009 LR 900 NS (0.9%) 954 magnesium 55 IVPB 82 ABX 50 Cardizem 32 Medicated IV 35 GEN - Diltiazem/Cardizem 35 Oral 50 0 940 Output: [place]ch[place] 450 175 Assessment: 87 y/o female s/p ORIF with cep nailing by Dr. London 11/02. Plan: - DVT prophylaxis- lovenox x 1 month - WBAT - PT/ OT referral placed. - Irregular HR- Hospitalist following, post-op anemia- cont to monitor, trop neg. Transfuse 1 unit today. - Placement needed Acetaminophen (Tylenol Tab*) 650 mg PO Q4H PRN PRN Reason: FEVER/PAIN Cyclobenzaprine HCl (Flexeril Tab*) 5 mg PO BID PRN PRN Reason: SPASMS Last Admin: 11/02/17 08:16 Dose: 5 mg Dextrose (D50w Syringe 50 Ml*) 12.5 gm IV PUSH .FOR FS < 60 - SS PRN PRN Reason: FS < 60 Sodium Chloride (Ns 0.9% 1000 Ml*) 1,000 mls @ 50 mls/hr IV PER RATE TAYLER Last Admin: 11/02/17 22:57 Dose: 50 mls/hr Cefazolin Sodium/Dextrose (Kefzol 1 Gm In Dextrose Duplex (*)) 1 gm in 50 mls @ 200 mls/hr IVPB Q8H TAYLER Last Admin: 11/03/17 05:45 Dose: 200 mls/hr Diltiazem HCl 125 mg/ Sodium (Chloride) 125 mls @ 5 mls/hr IV Q24H TAYLER; 5 MG/HR PRN Reason: Protocol Last Admin: 11/02/17 22:29 Dose: 5 mls/hr Insulin Human Lispro (Humalog*) 0 units SUBCUT ACHS TAYLER PRN Reason: Protocol Last Admin: 11/03/17 07:20 Dose: Not Given Morphine Sulfate (Morphine Vial*) 1 mg IV Q4H PRN PRN Reason: PAIN - MILD Last Admin: 11/02/17 12:46 Dose: 1 mg Naloxone HCl (Narcan*) 0.08 mg IV Q2M PRN PRN Reason: severe induced resp depression Stop: 11/03/17 14:34 Ondansetron HCl (Zofran 40 Mg Vial*) 4 mg IV Q6H PRN PRN Reason: NAUSEA Last Admin: 10/31/17 20:43 Dose: 4 mg Tramadol HCl (Ultram*) 25 mg PO Q8H PRN PRN Reason: PAIN Last Admin: 11/02/17 16:23 Dose: 25 mg
[2017-11-03] MEDS: Acetaminophen TAB* 325 MG PO PRN (11:11)
--- NOTE | 2017-11-03 12:25 | PN ---
Subjective Date of Service: 11/03/17 Interval History: Patient seen and examined. Had overnight afib with RVR, was placed on cardizem drip overnight. Has since converted. Remains confused but can make needs known. States she has no pain, no complaints. Denies chest pain, no SOB. Objective Active Medications: Acetaminophen (Tylenol Tab*) 650 mg PO Q4H PRN PRN Reason: FEVER/PAIN Last Admin: 11/03/17 11:11 Dose: 650 mg Cyclobenzaprine HCl (Flexeril Tab*) 5 mg PO BID PRN PRN Reason: SPASMS Last Admin: 11/02/17 08:16 Dose: 5 mg Dextrose (D50w Syringe 50 Ml*) 12.5 gm IV PUSH .FOR FS < 60 - SS PRN PRN Reason: FS < 60 Sodium Chloride (Ns 0.9% 1000 Ml*) 1,000 mls @ 50 mls/hr IV PER RATE TAYLER Last Admin: 11/02/17 22:57 Dose: 50 mls/hr Cefazolin Sodium/Dextrose (Kefzol 1 Gm In Dextrose Duplex (*)) 1 gm in 50 mls @ 200 mls/hr IVPB Q8H TAYLER Last Admin: 11/03/17 05:45 Dose: 200 mls/hr Insulin Human Lispro (Humalog*) 0 units SUBCUT ACHS TAYLER PRN Reason: Protocol Last Admin: 11/03/17 11:17 Dose: Not Given Morphine Sulfate (Morphine Vial*) 1 mg IV Q4H PRN PRN Reason: PAIN - MILD Last Admin: 11/02/17 12:46 Dose: 1 mg Naloxone HCl (Narcan*) 0.08 mg IV Q2M PRN PRN Reason: severe induced resp depression Stop: 11/03/17 14:34 Ondansetron HCl (Zofran 40 Mg Vial*) 4 mg IV Q6H PRN PRN Reason: NAUSEA Last Admin: 10/31/17 20:43 Dose: 4 mg Tramadol HCl (Ultram*) 25 mg PO Q8H PRN PRN Reason: PAIN Last Admin: 11/02/17 16:23 Dose: 25 mg Vital Signs - 8 hr 11/03/17 11/03/17 11/03/17 04:48 04:58 05:00 Temperature Pulse Rate 85 84 Respiratory Rate Blood Pressure 140/55 133/48 (mmHg) O2 Sat by Pulse 95 92 Oximetry 11/03/17 11/03/17 11/03/17 05:58 06:54 06:58 Temperature Pulse Rate Respiratory 16 Rate Blood Pressure 132/63 128/57 (mmHg) O2 Sat by Pulse Oximetry 11/03/17 11/03/17 11/03/17 07:50 07:58 08:00 Temperature 98.7 F Pulse Rate Respiratory 16 Rate Blood Pressure 145/54 (mmHg) O2 Sat by Pulse 93 Oximetry 11/03/17 11/03/17 11/03/17 08:58 09:58 10:59 Temperature Pulse Rate Respiratory Rate Blood Pressure 134/50 137/52 154/64 (mmHg) O2 Sat by Pulse Oximetry 11/03/17 11/03/17 11:00 11:24 Temperature 98.2 F Pulse Rate 95 Respiratory Rate Blood Pressure (mmHg) O2 Sat by Pulse 93 Oximetry Oxygen Devices in Use Now: None Appearance: Alert, pale, NAD Eyes: No Scleral Icterus Ears/Nose/Mouth/Throat: - - dry oral mucosa Neck: NL Appearance and Movements; NL JVP, Trachea Midline Respiratory: Symmetrical Chest Expansion and Respiratory Effort, Clear to Auscultation Cardiovascular: NL Sounds; No Murmurs; No JVD, RRR, No Edema Abdominal: NL Sounds; No Tenderness; No Distention Skin: No Rash or Ulcers, - - dressing CDI Neurological: NL Sensation, - - confused at baseline Nutrition: Taking PO's Result Diagrams: 11/03/17 05:45 11/02/17 21:55 Microbiology and Other Data: Microbiology 11/01/17 03:40 Nasal Screen MRSA (PCR)(DAVID) - Final Nasal Mrsa Not Detected Diagnostic Imaging: CARDIAC ECHO Conclusions The left ventricular chamber size is decreased. Moderate concentric left ventricular hypertrophy and increased basal septal hypertrophy noted No gradient across the left ventricular outflow tract. The left ventricle appears hyperdynamic. The estimated ejection fraction is greater than 65%. Abnormal left ventricular diastolic filling is observed, consistent with impaired relaxation. The right ventricular global systolic function is normal. There is mild aortic regurgitation. There is mitral annular calcification. There is a trace of mitral regurgitation. There is borderline mitral stenosis. There is moderate tricuspid regurgitation. There is evidence of moderate pulmonary hypertension: 46 mmHg. No prior echo to compare. Assess/Plan/Problems-Billing Assessment: This is an 87 year old female with history of mild dementia that presented with fall and intertroch fracture from [facility], POD1. - Patient Problems (1) Intertrochanteric fracture of left hip Code(s): S72.142A - DISPLACED INTERTROCHANTERIC FRACTURE OF LEFT FEMUR, INIT SNOMED Code(s): 165910688 Comment: - POD1 IM Nail with Dr. London - Pain control - Bowel regimen - DVT prophy with lovenox as per ortho - Continue tele for 24 hours post op (2) Atrial fibrillation with rapid ventricular response Code(s): I48.91 - UNSPECIFIED ATRIAL FIBRILLATION SNOMED Code(s): 417086067447125 Comment: - Cardizem bolus and drip overnight, now in RSR with 1st degree AVB - Cardizem drip DC'd - May likely be cardiac irritability 2/2 post-op anemia, will transfuse 1 unit PRBCs and continue to monitor. (3) Dementia Code(s): F03.90 - UNSPECIFIED DEMENTIA WITHOUT BEHAVIORAL DISTURBANCE SNOMED Code(s): 84732046 Comment: - Seems to be a little more confused than before surgery but remains appropriate and able to be redirected most of the time - Continue supportive care (4) Hypertension Code(s): I10 - ESSENTIAL (PRIMARY) HYPERTENSION SNOMED Code(s): 53194327 Comment: - On lisinopril at home - BP stable at present, had overnight hypotension which is improving (5) DVT prophylaxis Code(s): RMT3876 - SNOMED Code(s): 698535313 Comment: - Lovenox SQ (6) Full code status Code(s): Z78.9 - OTHER SPECIFIED HEALTH STATUS SNOMED Code(s): 297869880 Status and Disposition: Remain inpatient.
[2017-11-04] MEDS: NS 0.9% 1000 ML* 1,000 ML IV SCH (03:14)
[2017-11-04] MEDS: traMADol TAB* 50 MG PO PRN (03:19)
[2017-11-04] MEDS: ceFAZolin 1 GM in Dextrose (*) 1 GM/50 ML BAG IVPB SCH ×3 (05:02→20:52)
[2017-11-04 05:29] LABS: ABS Basophils 0 10^3/ul (0-0.2); ABS Eosinophils 0.1 10^3/ul (0-0.6); ABS Lymphocytes 1.3 10^3/ul (1.0-4.8); ABS Monocytes 1.1 10^3/ul (0-0.8); ABS Neutrophils 7.2 10^3/ul (1.5-7.7); ABS Nucleated RBC 0 10^3/ul; Eosinophil % 0.6 % (0-6); Hematocrit 30 % (35-47); Lymphocyte % 13.4 % (25-47); Mean Corpuscular HGB Conc 34 g/dl (31-36); Mean Corpuscular Hemoglobin 29 pg (27-31); Mean Corpuscular Volume 88 fL (80-97); Mean Platelet Volume 8.4 um3 (7.4-10.4); Nucleated Red Blood Cells % 0.1; Platelet Count 209 10^3/ul (150-450); Red Cell Distribution Width 15 % (10.5-15); White Blood Count 9.7 10^3/ul (3.5-10.8)
[2017-11-04] MEDS: Insulin LISPRO* 1 UNITS UNIT SUBCUT SCH ×4 (09:10→20:52)
[2017-11-04] MEDS ORDERED: Metoprolol Tartrate IV* 1 MG/ML 5 ML VIAL IV ONE (09:30)
[2017-11-04] MEDS ORDERED: Potassium Chloride LIQUID* 20 MEQ PACKET PO ONE (09:31)
[2017-11-04] MEDS ORDERED: Metoprolol Tartrate TAB* 25 MG PO ONE (09:33)
--- NOTE | 2017-11-04 09:45 | PN ---
Subjective Date of Service: 11/04/17 Interval History: Patient examined at the bedside. confused Tachycardic with heart rate in the 140's EKG obtained- rapid afib with RVR. Patient is asymptomatic. Denies chest pain or shortness of breath, respirations easy and even. denies abd pain , n/v/d Family History: Unchanged from Admission Social History: Unchanged from Admission Past Medical History: Unchanged from Admission Objective Active Medications: Acetaminophen (Tylenol Tab*) 650 mg PO Q4H PRN PRN Reason: FEVER/PAIN Last Admin: 11/03/17 11:11 Dose: 650 mg Cyclobenzaprine HCl (Flexeril Tab*) 5 mg PO BID PRN PRN Reason: SPASMS Last Admin: 11/02/17 08:16 Dose: 5 mg Dextrose (D50w Syringe 50 Ml*) 12.5 gm IV PUSH .FOR FS < 60 - SS PRN PRN Reason: FS < 60 Sodium Chloride (Ns 0.9% 1000 Ml*) 1,000 mls @ 50 mls/hr IV PER RATE [facility] Last Admin: 11/04/17 03:14 Dose: 50 mls/hr Cefazolin Sodium/Dextrose (Kefzol 1 Gm In Dextrose Duplex (*)) 1 gm in 50 mls @ 200 mls/hr IVPB Q8H [facility] Last Admin: 11/04/17 05:02 Dose: 200 mls/hr Insulin Human Lispro (Humalog*) 0 units SUBCUT ACHS [facility] PRN Reason: Protocol Last Admin: 11/04/17 09:10 Dose: Not Given Morphine Sulfate (Morphine Vial*) 1 mg IV Q4H PRN PRN Reason: PAIN - MILD Last Admin: 11/02/17 12:46 Dose: 1 mg Ondansetron HCl (Zofran 40 Mg Vial*) 4 mg IV Q6H PRN PRN Reason: NAUSEA Last Admin: 10/31/17 20:43 Dose: 4 mg Tramadol HCl (Ultram*) 25 mg PO Q8H PRN PRN Reason: PAIN Last Admin: 11/04/17 03:19 Dose: 25 mg Vital Signs - 8 hr 11/04/17 11/04/17 11/04/17 03:19 03:36 06:15 Temperature 98.6 F Pulse Rate 95 Respiratory 18 20 17 Rate Blood Pressure 152/53 (mmHg) O2 Sat by Pulse 98 Oximetry 11/04/17 11/04/17 06:44 07:49 Temperature 98.0 F Pulse Rate 100 Respiratory 16 16 Rate Blood Pressure 151/42 (mmHg) O2 Sat by Pulse 98 100 Oximetry Oxygen Devices in Use Now: None Appearance: pleasently confused, resting in the bed, No acute distress Eyes: No Scleral Icterus Ears/Nose/Mouth/Throat: Mucous Membranes Moist Neck: NL Appearance and Movements; NL JVP, Trachea Midline Respiratory: Symmetrical Chest Expansion and Respiratory Effort, Clear to Auscultation Cardiovascular: NL Sounds; No Murmurs; No JVD, No Edema, - - tachycardic Abdominal: NL Sounds; No Tenderness; No Distention Extremities: No Edema, No Clubbing, Cyanosis Skin: No Rash or Ulcers, - - dressing dry and intact to left hip Neurological: - - confused to place and time, oriented to name only Nutrition: Taking PO's Result Diagrams: 11/04/17 05:02 11/04/17 05:02 Microbiology and Other Data: Microbiology 11/01/17 03:40 Nasal Screen MRSA (PCR)(DAVID) - Final Nasal Mrsa Not Detected Diagnostic Imaging: CARDIAC ECHO Conclusions The left ventricular chamber size is decreased. Moderate concentric left ventricular hypertrophy and increased basal septal hypertrophy noted No gradient across the left ventricular outflow tract. The left ventricle appears hyperdynamic. The estimated ejection fraction is greater than 65%. Abnormal left ventricular diastolic filling is observed, consistent with impaired relaxation. The right ventricular global systolic function is normal. There is mild aortic regurgitation. There is mitral annular calcification. There is a trace of mitral regurgitation. There is borderline mitral stenosis. There is moderate tricuspid regurgitation. There is evidence of moderate pulmonary hypertension: 46 mmHg. No prior echo to compare. Assess/Plan/Problems-Billing Assessment: This is an 87 year old female with history of mild dementia that presented with fall and intertroch fracture from [facility], POD1. - Patient Problems (1) Intertrochanteric fracture of left hip Current Visit: Yes Status: Acute Code(s): S72.142A - DISPLACED INTERTROCHANTERIC FRACTURE OF LEFT FEMUR, INIT SNOMED Code(s): 121430166 Comment: - POD2 IM Nail with Dr. London - Pain control - Bowel regimen - DVT prophy with lovenox as per ortho - Continue tele (2) Atrial fibrillation with rapid ventricular response Current Visit: Yes Status: Acute Code(s): I48.91 - UNSPECIFIED ATRIAL FIBRILLATION SNOMED Code(s): 626512071296459 Comment: - Patient with Afib with RVR this Am rate 140's- will given metoprolol 5mg IV and Metoprolol 25 mg PO. Will give full dose anticoagulation lovenox q 12 hours , monitor Vital signs - patient HR slowed and returned to NSR after metoprolol - May likely be cardiac irritability 2/2 post-op anemia, H/H improved after transfusion (3) Dementia Current Visit: Yes Status: Acute Code(s): F03.90 - UNSPECIFIED DEMENTIA WITHOUT BEHAVIORAL DISTURBANCE SNOMED Code(s): 02940705 Comment: - Seems to be confused but remains appropriate when asked questions. Confused to place and time oriented to name only - Continue supportive care (4) Hypertension Current Visit: Yes Status: Acute Code(s): I10 - ESSENTIAL (PRIMARY) HYPERTENSION SNOMED Code(s): 36024205 Comment: - On lisinopril at home- will continue to hold, replace with metoprolol - BP stable at present, giving metoprolol for Afib with RVR - willmonitor for hypotension (5) Full code status Current Visit: Yes Status: Acute Code(s): Z78.9 - OTHER SPECIFIED HEALTH STATUS SNOMED Code(s): 415453593 (6) DVT prophylaxis Current Visit: Yes Status: Acute Code(s): DZY5959 - SNOMED Code(s): 825687722 Comment: - Lovenox SQ Status and Disposition: Remain inpatient.
[2017-11-04] MEDS ORDERED: Metoprolol Tartrate TAB* 25 MG PO SCH (10:00)
[2017-11-04] MEDS: Enoxaparin(*) 60 MG/0.6 ML SYR SUBCUT SCH ×2 (12:55→22:23)
--- NOTE | 2017-11-04 15:37 | PN ---
Progress Note - Progress Note Date of Service: 11/04/17 SOAP: Subjective: 87 y/o female s/p ORIF with CEP nailing by Dr. London 11/02. Another episode of afib with RVR this morning. Patient confused, at baseline, no complaints. Objective: Vital Signs Temp 99.1 F 11/04/17 11:15 Pulse 85 11/04/17 11:15 Resp 16 11/04/17 11:15 BP 125/85 11/04/17 11:15 Pulse Ox 99 11/04/17 11:15 Intake & Output 11/03/17 11/04/17 11/04/17 18:59 06:59 18:59 Intake Total 1022 180 120 Output Total 1000 350 Balance 1022 -820 -230 Intake: IV Fluids 50 cefazolin 50 IVPB 82 110 ABX 50 Cardizem 32 cefazolin 110 Oral 940 20 120 Output: Urine 350 Lechuga 1000 Laboratory Results - last 24 hr 11/03/17 11/03/17 11/03/17 05:45 16:35 19:50 WBC RBC Hgb Hct MCV MCH MCHC RDW Plt Count MPV Neut % (Auto) Lymph % (Auto) [place] % (Auto) Eos % (Auto) Baso % (Auto) Absolute Neuts (auto) Absolute Lymphs (auto) Absolute Monos (auto) Absolute Eos (auto) Absolute Basos (auto) Absolute Nucleated RBC Nucleated RBC % Sodium Potassium Chloride Carbon Dioxide Anion Gap BUN Creatinine Est GFR ( Amer) Est GFR (Non-Af Amer) BUN/Creatinine Ratio Glucose POC Glucose (mg/dL) 132 H 140 H Calcium Magnesium Blood Type O Positive Antibody Screen Negative Crossmatch See Detail 11/04/17 11/04/17 11/04/17 05:02 05:02 07:56 WBC 9.7 RBC 3.40 L Hgb 10.0 L Hct 30 L MCV 88 MCH 29 MCHC 34 RDW 15 Plt Count 209 MPV 8.4 Neut % (Auto) 74.3 Lymph % (Auto) 13.4 L [place] % (Auto) 11.6 H Eos % (Auto) 0.6 Baso % (Auto) 0.1 Absolute Neuts (auto) 7.2 Absolute Lymphs (auto) 1.3 Absolute Monos (auto) 1.1 H Absolute Eos (auto) 0.1 Absolute Basos (auto) 0 Absolute Nucleated RBC 0 Nucleated RBC % 0.1 Sodium 138 L Potassium 3.7 Chloride 107 Carbon Dioxide 26 Anion Gap 5 BUN 15 Creatinine 0.52 Est GFR ( Amer) 142.8 Est GFR (Non-Af Amer) 111.0 BUN/Creatinine Ratio 28.8 H Glucose 118 H POC Glucose (mg/dL) 114 H Calcium 7.5 L Magnesium 2.0 Blood Type Antibody Screen Crossmatch 11/04/17 12:48 WBC RBC Hgb Hct MCV MCH MCHC RDW Plt Count MPV Neut % (Auto) Lymph % (Auto) [place] % (Auto) Eos % (Auto) Baso % (Auto) Absolute Neuts (auto) Absolute Lymphs (auto) Absolute Monos (auto) Absolute Eos (auto) Absolute Basos (auto) Absolute Nucleated RBC Nucleated RBC % Sodium Potassium Chloride Carbon Dioxide Anion Gap BUN Creatinine Est GFR ( Amer) Est GFR (Non-Af Amer) BUN/Creatinine Ratio Glucose POC Glucose (mg/dL) 141 H Calcium Magnesium Blood Type Antibody Screen Crossmatch General- Well appearing, resting in bed comfortably, NAD, AO MSK- Surgical dressing intact, surrounding skin without erythema, induration. Slightly tender to palpation. + DF/PF, PT 1+, SITLT, moderate edema. Assessment: 87 y/o female s/p ORIF with cep nailing by Dr. London 11/02. Plan: - DVT prophylaxis- lovenox x 1 month - WBAT - Patient would not participate in PT this morning. - Irregular HR- Hospitalist following, post-op anemia- cont to monitor. - Placement needed
[2017-11-04] MEDS: Metoprolol Tartrate TAB* 25 MG PO SCH (20:52)
[2017-11-05] MEDS: NS 0.9% 1000 ML* 1,000 ML IV SCH (02:24)
[2017-11-05] MEDS: ceFAZolin 1 GM in Dextrose (*) 1 GM/50 ML BAG IVPB SCH ×3 (04:56→21:39)
[2017-11-05] MEDS: Morphine VIAL* 4 MG/ML VIAL (1 ml vial) IV PRN (05:33)
[2017-11-05] MEDS: Insulin LISPRO* 1 UNITS UNIT SUBCUT SCH ×4 (07:57→20:24)
[2017-11-05] MEDS: Metoprolol Tartrate TAB* 25 MG PO SCH ×2 (07:57→20:50)
[2017-11-05 08:15] LABS: EGFR Non-African American 118.9 (>60)
--- NOTE | 2017-11-05 12:05 | PN ---
Progress Note - Progress Note Date of Service: 11/05/17 SOAP: Subjective: 87 y/o female s/p ORIF with CEP nailing by Dr. London 11/02. No new episodes of afib overnight. Patient confused, at baseline, no complaints. Objective: Vital Signs Temp 97.9 F 11/05/17 11:40 Pulse 67 11/05/17 11:40 Resp 16 11/05/17 11:40 BP 152/55 11/05/17 11:40 Pulse Ox 98 11/05/17 11:51 Intake & Output 11/04/17 11/05/17 11/05/17 18:59 06:59 18:59 Intake Total 120 1270 Output Total 350 750 Balance -230 520 Intake: IV Fluids 1105 NS (0.9%) 1105 IVPB 165 ABX 165 Oral 120 0 Output: Urine 350 200 Lechuga 550 Laboratory Results - last 24 hr 11/04/17 11/04/17 11/04/17 12:48 16:32 20:12 Sodium Potassium Chloride Carbon Dioxide Anion Gap BUN Creatinine Est GFR ( Amer) Est GFR (Non-Af Amer) BUN/Creatinine Ratio Glucose POC Glucose (mg/dL) 141 H 134 H 124 H Calcium Magnesium 11/05/17 11/05/17 11/05/17 07:12 07:28 11:24 Sodium 137 L Potassium 3.1 L Chloride 106 Carbon Dioxide 24 Anion Gap 7 BUN 12 Creatinine 0.49 L Est GFR ( Amer) 152.9 Est GFR (Non-Af Amer) 118.9 BUN/Creatinine Ratio 24.5 H Glucose 112 H POC Glucose (mg/dL) 117 H 124 H Calcium 7.4 L Magnesium 1.8 L General- Well appearing, resting in bed comfortably, NAD, AO MSK- Surgical dressing removed. Dressing without purulent discharge. Incision clean, dry, intact. No erythema or induration. Slightly tender to palpation. + DF/PF, PT 1+, SITLT. Assessment: 87 y/o female s/p ORIF with cep nailing by Dr. London 11/02. Plan: - DVT prophylaxis- lovenox x 1 month - WBAT - Patient would not participate in PT yesterday, goal to get her OOB today - AFib with RVR, stable currently. Hospitalist following. - Placement needed
[2017-11-05] MEDS ORDERED: Magnesium Sulfate 1 GM IV* 1 GM/100 ML BAG IV ONE (12:55)
[2017-11-05] MEDS: Enoxaparin(*) 60 MG/0.6 ML SYR SUBCUT SCH ×2 (13:10→23:50)
[2017-11-05] MEDS ORDERED: Potassium Chlor TAB* 20 MEQ TAB.ER PO ONE (16:05)
--- NOTE | 2017-11-05 16:50 | PN ---
Subjective Date of Service: 11/05/17 Interval History: Confused to place and time. Oriented to person. Denies chest pain or shortness of breath. Denies abd pain , n/v/d. c/o mild left leg pain with movement heart rate remains controlled in the 70's and 80's. Family History: Unchanged from Admission Social History: Unchanged from Admission Past Medical History: Unchanged from Admission Objective Active Medications: Acetaminophen (Tylenol Tab*) 650 mg PO Q4H PRN PRN Reason: FEVER/PAIN Last Admin: 11/03/17 11:11 Dose: 650 mg Cyclobenzaprine HCl (Flexeril Tab*) 5 mg PO BID PRN PRN Reason: SPASMS Last Admin: 11/02/17 08:16 Dose: 5 mg Dextrose (D50w Syringe 50 Ml*) 12.5 gm IV PUSH .FOR FS < 60 - SS PRN PRN Reason: FS < 60 Enoxaparin Sodium (Lovenox(*)) 60 mg SUBCUT Q12H [facility] Last Admin: 11/05/17 13:10 Dose: 60 mg Sodium Chloride (Ns 0.9% 1000 Ml*) 1,000 mls @ 50 mls/hr IV PER RATE [facility] Last Admin: 11/05/17 02:24 Dose: 50 mls/hr Cefazolin Sodium/Dextrose (Kefzol 1 Gm In Dextrose Duplex (*)) 1 gm in 50 mls @ 200 mls/hr IVPB Q8H [facility] Last Admin: 11/05/17 13:10 Dose: 200 mls/hr Insulin Human Lispro (Humalog*) 0 units SUBCUT ACHS [facility] PRN Reason: Protocol Last Admin: 11/05/17 11:26 Dose: Not Given Metoprolol Tartrate (Lopressor Tab*) 25 mg PO BID [facility] Last Admin: 11/05/17 07:57 Dose: 25 mg Ondansetron HCl (Zofran 40 Mg Vial*) 4 mg IV Q6H PRN PRN Reason: NAUSEA Last Admin: 10/31/17 20:43 Dose: 4 mg Tramadol HCl (Ultram*) 25 mg PO Q8H PRN PRN Reason: PAIN Last Admin: 11/04/17 03:19 Dose: 25 mg Vital Signs - 8 hr 11/05/17 11/05/17 11:40 11:51 Temperature 97.9 F Pulse Rate 67 Respiratory 16 Rate Blood Pressure 152/55 (mmHg) O2 Sat by Pulse 98 98 Oximetry Oxygen Devices in Use Now: None Appearance: appears comfortable, no acute distress, confused to place and time. Eyes: No Scleral Icterus Ears/Nose/Mouth/Throat: Clear Oropharnyx, Mucous Membranes Moist Neck: NL Appearance and Movements; NL JVP, Trachea Midline Respiratory: Symmetrical Chest Expansion and Respiratory Effort, Clear to Auscultation Cardiovascular: NL Sounds; No Murmurs; No JVD, No Edema Abdominal: NL Sounds; No Tenderness; No Distention Extremities: No Edema, No Clubbing, Cyanosis Skin: No Rash or Ulcers, - - surgical incision to left hip with merle intact , no redness noted Neurological: - - confused to place and time. Nutrition: Taking PO's Result Diagrams: 11/04/17 05:02 11/05/17 07:28 Microbiology and Other Data: Microbiology 11/01/17 03:40 Nasal Screen MRSA (PCR)(DAVID) - Final Nasal Mrsa Not Detected Diagnostic Imaging: CARDIAC ECHO Conclusions The left ventricular chamber size is decreased. Moderate concentric left ventricular hypertrophy and increased basal septal hypertrophy noted No gradient across the left ventricular outflow tract. The left ventricle appears hyperdynamic. The estimated ejection fraction is greater than 65%. Abnormal left ventricular diastolic filling is observed, consistent with impaired relaxation. The right ventricular global systolic function is normal. There is mild aortic regurgitation. There is mitral annular calcification. There is a trace of mitral regurgitation. There is borderline mitral stenosis. There is moderate tricuspid regurgitation. There is evidence of moderate pulmonary hypertension: 46 mmHg. No prior echo to compare. Assess/Plan/Problems-Billing Assessment: This is an 87 year old female with history of mild dementia that presented with fall and intertroch fracture from [facility], POD1. - Patient Problems (1) Intertrochanteric fracture of left hip Current Visit: Yes Status: Acute Code(s): S72.142A - DISPLACED INTERTROCHANTERIC FRACTURE OF LEFT FEMUR, INIT SNOMED Code(s): 724383683 Comment: - POD3 IM Nail with Dr. London - Pain control- will use tylenol as first line treatment for pain as patient is mildly confused - Bowel regimen - DVT prophy with lovenox as per ortho - Continue tele - remains in SR in the 70-80's (2) Atrial fibrillation with rapid ventricular response Current Visit: Yes Status: Acute Code(s): I48.91 - UNSPECIFIED ATRIAL FIBRILLATION SNOMED Code(s): 041994867410246 Comment: - will continue metoprolol 25mg BID - Will give full dose anticoagulation lovenox q 12 hours - monitor Vital signs - patient HR slowed and returned to NSR after metoprolol - May likely be cardiac irritability 2/2 post-op anemia, H/H improved after transfusion (3) Dementia Current Visit: Yes Status: Acute Code(s): F03.90 - UNSPECIFIED DEMENTIA WITHOUT BEHAVIORAL DISTURBANCE SNOMED Code(s): 22584622 Comment: - Seems to be confused but remains appropriate when asked questions. Confused to place and time oriented to name only - Continue supportive care (4) Hypertension Current Visit: Yes Status: Acute Code(s): I10 - ESSENTIAL (PRIMARY) HYPERTENSION SNOMED Code(s): 75935456 Comment: - On lisinopril at home- will continue to hold, replace with metoprolol - BP stable at present, giving metoprolol for Afib with RVR yesterday - will continue to monitor for hypotension and bradycardia (5) DVT prophylaxis Current Visit: Yes Status: Acute Code(s): PBY9193 - SNOMED Code(s): 295028208 Comment: - Lovenox SQ (6) DNR (do not resuscitate) Current Visit: Yes Status: Acute Comment: - discussed with family today - wishes to be DNR/DNI Status and Disposition: Remain inpatient.
[2017-11-05] MEDS: Acetaminophen TAB* 325 MG PO PRN (18:33)
[2017-11-06] MEDS: ceFAZolin 1 GM in Dextrose (*) 1 GM/50 ML BAG IVPB SCH ×3 (04:50→21:31)
[2017-11-06] MEDS ORDERED: Adenosine* 3 MG/ML VIAL IV PUSH ONE (06:02)
[2017-11-06] MEDS ORDERED: Diltiazem IV* 5 MG/ML 5 ML VIAL (for loading dose/IV Push) (25 MG) IV SLOW PU ONE (06:06)
[2017-11-06] MEDS ORDERED: Adenosine* 3 MG/ML VIAL ONE (06:08)
--- NOTE | 2017-11-06 06:13 | PN ---
Progress Note - Progress Note Date of Service: 11/06/17 Note: Paged for sustained tachycardia - EKG shows rapid afib Rate 140's. Patient asymptomatic. Will try cardizem bolus followed by drip if bolus shows effect. Awaiting am BMP and will add on Mg level. Patient on anticoagulation
[2017-11-06] MEDS ORDERED: Diltiazem IV* 5 MG/ML 5 ML VIAL (for loading dose/IV Push) (25 MG) ONE (06:14)
[2017-11-06] MEDS ORDERED: Metoprolol Tartrate IV* 1 MG/ML 5 ML VIAL IV ONE (06:41)
[2017-11-06] MEDS ORDERED: Digoxin IV* 0.5 MG/2 ML AMP (0.25 MG/ML) IV SLOW PU ONE (06:42)
[2017-11-06 06:56] LABS: ABS Basophils 0.1 10^3/ul (0-0.2); ABS Eosinophils 0.3 10^3/ul (0-0.6); ABS Monocytes 0.9 10^3/ul (0-0.8); ABS Neutrophils 6.4 10^3/ul (1.5-7.7); ABS Nucleated RBC 0 10^3/ul; Eosinophil % 2.7 % (0-6); Hematocrit 31 % (35-47); Hemoglobin 10.4 g/dl (12.0-16.0); Lymphocyte % 20.5 % (25-47); Mean Corpuscular HGB Conc 34 g/dl (31-36); Mean Corpuscular Hemoglobin 29 pg (27-31); Mean Corpuscular Volume 87 fL (80-97); Mean Platelet Volume 8.3 um3 (7.4-10.4); Nucleated Red Blood Cells % 0; Platelet Count 309 10^3/ul (150-450); Red Blood Count 3.55 10^6/ul (4.0-5.4); Red Cell Distribution Width 15 % (10.5-15); White Blood Count 9.5 10^3/ul (3.5-10.8)
[2017-11-06 07:13] LABS: EGFR Non-African American 138.3 (>60)
[2017-11-06] MEDS ORDERED: Potassium Chlor TAB* 20 MEQ TAB.ER PO ONE ×2 (07:46→20:27)
[2017-11-06] MEDS: Insulin LISPRO* 1 UNITS UNIT SUBCUT SCH ×4 (07:58→21:23)
[2017-11-06] MEDS: Metoprolol Tartrate TAB* 25 MG PO SCH ×2 (08:55→20:05)
[2017-11-06] MEDS: Acetaminophen TAB* 325 MG PO PRN (09:00)
--- NOTE | 2017-11-06 09:59 | PN ---
Progress Note - Progress Note Date of Service: 11/06/17 SOAP: Subjective: 87 y/o female s/p ORIF with cep nailing by Dr. London 11/02. Patient demented, picking at gown in room. Denies pain, not aware of surgery. Afebrile, tachy overnight. Objective: General- Well appearing, NAD AO MSK- Dressing intact over L hip, lower incision without drainage, c/d/i, redressed. Upper incision with serous-ang drainage noted soaking gauze pad, patient unwilling to have me change dressing, keeps slapping hand away. thigh without induration, + DF/PF b/l, PT 1+, no edema, SITLT Vital Signs Temp 98.7 F 11/06/17 07:12 Pulse 108 11/06/17 07:12 Resp 24 11/06/17 08:00 BP 128/60 11/06/17 07:12 Pulse Ox 99 11/06/17 08:00 Intake & Output 11/05/17 11/06/17 11/06/17 18:59 06:59 18:59 Intake Total 0 870 Output Total 500 825 550 Balance -500 45 -550 Intake: IV Fluids 540 NS (0.9%) 540 IVPB 210 ABX 210 Oral 0 120 Output: Urine 500 275 Lechuga 550 550 Other: # Bowel Movements 0 Assessment: Stable 87 y/o female s/p ORIF with cep nailing by Dr. London 11/02. Plan: - DVT prophylaxis- lovenox x 1 month - WBAT - Will ask nurses to change dressing when she is back in bed with assistance. - AFib with RVR, tachy overnight, multiple IV meds given. H&H stable s/p 1 unit PRBC transfusion 11/03. Hospitalist following. - Placement needed - SUtures to be removed 11/16 Acetaminophen (Tylenol Tab*) 650 mg PO Q4H PRN PRN Reason: FEVER/PAIN Last Admin: 11/06/17 09:00 Dose: 650 mg Cyclobenzaprine HCl (Flexeril Tab*) 5 mg PO BID PRN PRN Reason: SPASMS Last Admin: 11/02/17 08:16 Dose: 5 mg Dextrose (D50w Syringe 50 Ml*) 12.5 gm IV PUSH .FOR FS < 60 - SS PRN PRN Reason: FS < 60 Enoxaparin Sodium (Lovenox(*)) 60 mg SUBCUT Q12H [facility] Last Admin: 11/05/17 23:50 Dose: 60 mg Cefazolin Sodium/Dextrose (Kefzol 1 Gm In Dextrose Duplex (*)) 1 gm in 50 mls @ 200 mls/hr IVPB Q8H [facility] Last Admin: 11/06/17 04:50 Dose: 200 mls/hr Insulin Human Lispro (Humalog*) 0 units SUBCUT ACHS [facility] PRN Reason: Protocol Last Admin: 11/06/17 07:58 Dose: Not Given Metoprolol Tartrate (Lopressor Tab*) 25 mg PO BID [facility] Last Admin: 11/06/17 08:55 Dose: 25 mg Ondansetron HCl (Zofran 40 Mg Vial*) 4 mg IV Q6H PRN PRN Reason: NAUSEA Last Admin: 10/31/17 20:43 Dose: 4 mg Tramadol HCl (Ultram*) 25 mg PO Q8H PRN PRN Reason: PAIN Last Admin: 11/04/17 03:19 Dose: 25 mg
[2017-11-06] MEDS: Enoxaparin(*) 60 MG/0.6 ML SYR SUBCUT SCH ×2 (12:44→23:22)
--- NOTE | 2017-11-06 19:12 | PN ---
Subjective Date of Service: 11/06/17 Interval History: Patient with PRETTY at 6 am , given digoxin and cardizem, slowed to SR in the 80's . Denies chest pain or shortness of breath. Denies abd pain. Confused to place and time. Denies N/v/d. Family History: Unchanged from Admission Social History: Unchanged from Admission Past Medical History: Unchanged from Admission Objective Active Medications: Acetaminophen (Tylenol Tab*) 650 mg PO Q4H PRN PRN Reason: FEVER/PAIN Last Admin: 11/06/17 09:00 Dose: 650 mg Cyclobenzaprine HCl (Flexeril Tab*) 5 mg PO BID PRN PRN Reason: SPASMS Last Admin: 11/02/17 08:16 Dose: 5 mg Dextrose (D50w Syringe 50 Ml*) 12.5 gm IV PUSH .FOR FS < 60 - SS PRN PRN Reason: FS < 60 Enoxaparin Sodium (Lovenox(*)) 60 mg SUBCUT Q12H [facility] Last Admin: 11/06/17 12:44 Dose: 60 mg Cefazolin Sodium/Dextrose (Kefzol 1 Gm In Dextrose Duplex (*)) 1 gm in 50 mls @ 200 mls/hr IVPB Q8H [facility] Last Admin: 11/06/17 14:23 Dose: 200 mls/hr Insulin Human Lispro (Humalog*) 0 units SUBCUT ACHS [facility] PRN Reason: Protocol Last Admin: 11/06/17 17:24 Dose: Not Given Metoprolol Tartrate (Lopressor Tab*) 25 mg PO Q8H [facility] Ondansetron HCl (Zofran 40 Mg Vial*) 4 mg IV Q6H PRN PRN Reason: NAUSEA Last Admin: 10/31/17 20:43 Dose: 4 mg Tramadol HCl (Ultram*) 25 mg PO Q8H PRN PRN Reason: PAIN Last Admin: 11/04/17 03:19 Dose: 25 mg Vital Signs - 8 hr 11/06/17 11/06/17 11/06/17 11:19 15:25 15:27 Temperature 97.8 F 97.6 F Pulse Rate 86 68 Respiratory 16 24 Rate Blood Pressure 134/47 143/46 (mmHg) O2 Sat by Pulse 100 100 100 Oximetry Oxygen Devices in Use Now: None Appearance: appears comfortable sitting in the chair, no acute distress. Eyes: No Scleral Icterus Ears/Nose/Mouth/Throat: Clear Oropharnyx, Mucous Membranes Moist Neck: NL Appearance and Movements; NL JVP, Trachea Midline Respiratory: Symmetrical Chest Expansion and Respiratory Effort, Clear to Auscultation Cardiovascular: NL Sounds; No Murmurs; No JVD, No Edema Abdominal: NL Sounds; No Tenderness; No Distention Extremities: No Edema, No Clubbing, Cyanosis Skin: No Rash or Ulcers, No Nodules or Sclerosis, - - dresssing intact to left hip Neurological: Alert and Oriented x 3, NL Muscle Strength and Tone Nutrition: Taking PO's Result Diagrams: 11/06/17 06:35 11/07/17 06:03 Microbiology and Other Data: Microbiology 11/01/17 03:40 Nasal Screen MRSA (PCR)(DAVID) - Final Nasal Mrsa Not Detected Diagnostic Imaging: CARDIAC ECHO Conclusions The left ventricular chamber size is decreased. Moderate concentric left ventricular hypertrophy and increased basal septal hypertrophy noted No gradient across the left ventricular outflow tract. The left ventricle appears hyperdynamic. The estimated ejection fraction is greater than 65%. Abnormal left ventricular diastolic filling is observed, consistent with impaired relaxation. The right ventricular global systolic function is normal. There is mild aortic regurgitation. There is mitral annular calcification. There is a trace of mitral regurgitation. There is borderline mitral stenosis. There is moderate tricuspid regurgitation. There is evidence of moderate pulmonary hypertension: 46 mmHg. No prior echo to compare. Assess/Plan/Problems-Billing Assessment: This is an 87 year old female with history of mild dementia that presented with fall and intertroch fracture from [facility], POD1. - Patient Problems (1) Intertrochanteric fracture of left hip Current Visit: Yes Status: Acute Code(s): S72.142A - DISPLACED INTERTROCHANTERIC FRACTURE OF LEFT FEMUR, INIT SNOMED Code(s): 924503863 Comment: - POD4 IM Nail with Dr. London - Pain control- will use tylenol as first line treatment for pain as patient is mildly confused - merle to be removed on 11/16/17 - Bowel regimen - DVT prop. with lovenox x 1 month - Continue tele - remains in SR in the 70-80's currently - did have episode of PRETTY at 6 am returned back to SR after cardizem and digoxin (2) Atrial fibrillation with rapid ventricular response Current Visit: Yes Status: Acute Code(s): I48.91 - UNSPECIFIED ATRIAL FIBRILLATION SNOMED Code(s): 928186632428348 Comment: - will increase metoprolol 25mg TID and add digoxin for rate control - will check digoxin level in the AM - Will give full dose anticoagulation lovenox q 12 hours - monitor Vital signs - potassium is low will continue to replace potassium (3) Dementia Current Visit: Yes Status: Acute Code(s): F03.90 - UNSPECIFIED DEMENTIA WITHOUT BEHAVIORAL DISTURBANCE SNOMED Code(s): 54455207 Comment: - Seems to be confused but remains appropriate when asked questions. Confused to place and time oriented to name only - Continue supportive care (4) Hypertension Current Visit: Yes Status: Acute Code(s): I10 - ESSENTIAL (PRIMARY) HYPERTENSION SNOMED Code(s): 77462493 Comment: - On lisinopril at home- will continue to hold, replace with metoprolol - BP stable at present, giving metoprolol for Afib with RVR yesterday - will continue to monitor for hypotension and bradycardia (5) Hypokalemia Current Visit: Yes Status: Acute Code(s): E87.6 - HYPOKALEMIA SNOMED Code( s): 25943422 Comment: Potassium 3.3today Will give 4o meq KCL and repeat 40 meq this evening repeat labs in the AM (6) DVT prophylaxis Current Visit: Yes Status: Acute Code(s): JFW5491 - SNOMED Code(s): 543327753 Comment: - Lovenox SQ (7) DNR (do not resuscitate) Current Visit: Yes Status: Acute Comment: - discussed with family today - wishes to be DNR/DNI Status and Disposition: Remain inpatient.
[2017-11-06] MEDS ORDERED: Digoxin TAB* 0.125 MG PO ONE (20:30)
[2017-11-07] MEDS: Metoprolol Tartrate TAB* 25 MG PO SCH ×3 (03:38→19:40)
[2017-11-07] MEDS: ceFAZolin 1 GM in Dextrose (*) 1 GM/50 ML BAG IVPB SCH ×3 (04:59→21:47)
[2017-11-07 06:44] LABS: EGFR Non-African American 118.9 (>60)
[2017-11-07] MEDS: Insulin LISPRO* 1 UNITS UNIT SUBCUT SCH ×4 (07:48→19:58)
[2017-11-07] MEDS: Acetaminophen TAB* 325 MG PO PRN ×2 (10:03→19:40)
[2017-11-07] MEDS: Enoxaparin(*) 60 MG/0.6 ML SYR SUBCUT SCH ×2 (10:04→22:08)
[2017-11-07] MEDS ORDERED: Magnesium Sulfate 1 GM IV* 1 GM/100 ML BAG IV ONE (18:56)
--- NOTE | 2017-11-07 19:53 | PN ---
Subjective Date of Service: 11/07/17 Interval History: More alert today. episode of vomiting after eating her eggs this AM, patient states that the eggs were dry and got caught in her throat. c/o posterior neck pain. Denies chest pain or shortness of breath . Denies abd pain, n/d. No further episodes of PRETTY during the evening or night yesterday. Family History: Unchanged from Admission Social History: Unchanged from Admission Past Medical History: Unchanged from Admission Objective Active Medications: Acetaminophen (Tylenol Tab*) 650 mg PO Q4H PRN PRN Reason: FEVER/PAIN Last Admin: 11/07/17 10:03 Dose: 650 mg Cyclobenzaprine HCl (Flexeril Tab*) 5 mg PO BID PRN PRN Reason: SPASMS Last Admin: 11/02/17 08:16 Dose: 5 mg Dextrose (D50w Syringe 50 Ml*) 12.5 gm IV PUSH .FOR FS < 60 - SS PRN PRN Reason: FS < 60 Enoxaparin Sodium (Lovenox(*)) 60 mg SUBCUT Q12H TAYLER Last Admin: 11/07/17 10:04 Dose: 60 mg Cefazolin Sodium/Dextrose (Kefzol 1 Gm In Dextrose Duplex (*)) 1 gm in 50 mls @ 200 mls/hr IVPB Q8H TAYLER Last Admin: 11/07/17 12:55 Dose: 200 mls/hr Insulin Human Lispro (Humalog*) 0 units SUBCUT ACHS TAYLER PRN Reason: Protocol Last Admin: 11/07/17 17:11 Dose: 1 units Metoprolol Tartrate (Lopressor Tab*) 25 mg PO Q8H TAYLER Last Admin: 11/07/17 12:11 Dose: 25 mg Ondansetron HCl (Zofran 40 Mg Vial*) 4 mg IV Q6H PRN PRN Reason: NAUSEA Last Admin: 10/31/17 20:43 Dose: 4 mg Tramadol HCl (Ultram*) 25 mg PO Q8H PRN PRN Reason: PAIN Last Admin: 11/04/17 03:19 Dose: 25 mg Vital Signs - 8 hr 11/07/17 11/07/17 11/07/17 15:37 15:41 19:14 Temperature 97.9 F 99.0 F Pulse Rate 72 83 Respiratory 18 28 Rate Blood Pressure 167/61 156/60 (mmHg) O2 Sat by Pulse 100 100 99 Oximetry Oxygen Devices in Use Now: None Appearance: alert, appears comfortable restingin bed Eyes: No Scleral Icterus Ears/Nose/Mouth/Throat: Clear Oropharnyx, Mucous Membranes Moist Neck: NL Appearance and Movements; NL JVP, Trachea Midline Respiratory: Symmetrical Chest Expansion and Respiratory Effort, Clear to Auscultation Cardiovascular: NL Sounds; No Murmurs; No JVD, No Edema Abdominal: NL Sounds; No Tenderness; No Distention Extremities: No Clubbing, Cyanosis Skin: No Rash or Ulcers, No Nodules or Sclerosis, - - dressing intact to left hip Neurological: Alert and Oriented x 3, NL Muscle Strength and Tone Nutrition: Taking PO's Result Diagrams: 11/06/17 06:35 11/07/17 06:03 Microbiology and Other Data: Microbiology 11/01/17 03:40 Nasal Screen MRSA (PCR)(DAVID) - Final Nasal Mrsa Not Detected Diagnostic Imaging: CARDIAC ECHO Conclusions The left ventricular chamber size is decreased. Moderate concentric left ventricular hypertrophy and increased basal septal hypertrophy noted No gradient across the left ventricular outflow tract. The left ventricle appears hyperdynamic. The estimated ejection fraction is greater than 65%. Abnormal left ventricular diastolic filling is observed, consistent with impaired relaxation. The right ventricular global systolic function is normal. There is mild aortic regurgitation. There is mitral annular calcification. There is a trace of mitral regurgitation. There is borderline mitral stenosis. There is moderate tricuspid regurgitation. There is evidence of moderate pulmonary hypertension: 46 mmHg. No prior echo to compare. Assess/Plan/Problems-Billing Assessment: This is an 87 year old female with history of mild dementia that presented with fall and intertroch fracture from [facility], POD1. - Patient Problems (1) Intertrochanteric fracture of left hip Current Visit: Yes Status: Acute Code(s): S72.142A - DISPLACED INTERTROCHANTERIC FRACTURE OF LEFT FEMUR, INIT SNOMED Code(s): 364633136 Comment: - POD4 IM Nail with Dr. London - Pain control- will use tylenol as first line treatment for pain as patient is mildly confused - merle to be removed on 11/16/17 - Bowel regimen - DVT prop. with lovenox x 1 month - Continue tele - remains in SR in the 70-80's no further episodes of PRETTY - will need STR at discharge (2) Atrial fibrillation with rapid ventricular response Current Visit: Yes Status: Acute Code(s): I48.91 - UNSPECIFIED ATRIAL FIBRILLATION SNOMED Code(s): 116106469129584 Comment: - will increase metoprolol 25mg TID and add digoxin for rate control - will check digoxin level - 0.7 today - Will give full dose anticoagulation lovenox q 12 hours- Ortho would like anticoagulation for 30 days with lovenox- after 30 days would need to reassess risks vs benefits of using anticoagulation - monitor Vital signs - potassium is low will continue to replace potassium (3) Dementia Current Visit: Yes Status: Acute Code(s): F03.90 - UNSPECIFIED DEMENTIA WITHOUT BEHAVIORAL DISTURBANCE SNOMED Code(s): 62032173 Comment: - Seems to be confused but remains appropriate when asked questions. Confused to time oriented to name and place only - Continue supportive care (4) Hypertension Current Visit: Yes Status: Acute Code(s): I10 - ESSENTIAL (PRIMARY) HYPERTENSION SNOMED Code(s): 33810714 Comment: - On lisinopril at home- will continue to hold, replace with metoprolol for rate control - BP stable at present- will continue to monitor for hypotension and bradycardia (5) Hypokalemia Current Visit: Yes Status: Acute Code(s): E87.6 - HYPOKALEMIA SNOMED Code( s): 23672071 Comment: Potassium 4.4 today - will continue to monitor (6) Difficulty swallowing Current Visit: Yes Status: Acute Code(s): R13.10 - DYSPHAGIA, UNSPECIFIED SNOMED Code(s): 23345101 Comment: c/o food getting stuck - swallow eval completed today- recommended mechanical ground with extra sauces - thin liquids (7) DVT prophylaxis Current Visit: Yes Status: Acute Code(s): OOX1597 - SNOMED Code(s): 243158073 Comment: - Lovenox SQ (8) DNR (do not resuscitate) Current Visit: Yes Status: Acute Comment: - discussed with family today - wishes to be DNR/DNI Status and Disposition: Remain inpatient.- if HR is stable and no more episodes of PRETTY - patient will be ready for transfer to [facility]- bed will be available tomorrow Son updated on patients condition and possible transfer tomorrow
[2017-11-07] MEDS: traMADol TAB* 50 MG PO PRN (20:38)
[2017-11-08] MEDS: Metoprolol Tartrate TAB* 25 MG PO SCH ×2 (04:05→11:55)
[2017-11-08] MEDS: ceFAZolin 1 GM in Dextrose (*) 1 GM/50 ML BAG IVPB SCH (05:35)
[2017-11-08] MEDS: Insulin LISPRO* 1 UNITS UNIT SUBCUT SCH ×2 (07:51→11:55)
[2017-11-08] MEDS: traMADol TAB* 50 MG PO PRN (09:48)
[2017-11-08 11:32] VITALS: BP 140/61
[2017-11-08] MEDS: Enoxaparin(*) 60 MG/0.6 ML SYR SUBCUT SCH (11:55)
--- NOTE | 2017-11-08 13:29 | PN ---
Progress Note - Progress Note Date of Service: 11/08/17 SOAP: Subjective: [87 y/o female s/p ORIF with cep nailing by Dr. London 11/02. Patient demented , states hip hurts all the time. States she is very tender. Denies sob, chest pain.] Objective: [General: Pt is alert and awake . NAD MSK, LLE: Dressing is clean and dry. Able to df/pf. calf is soft and non tender. NVI] Vital Signs Temp 98.2 F 11/08/17 11:12 Pulse 90 11/08/17 11:12 Resp 20 11/08/17 11:58 BP 140/61 11/08/17 11:12 Pulse Ox 97 11/08/17 11:12 Intake & Output 11/07/17 11/08/17 11/08/17 18:59 06:59 18:59 Intake Total 320 50 620 Output Total 350 350 Balance -30 -300 620 Intake: IVPB 50 cefazolin 50 Oral 320 0 620 Output: Urine 350 350 Other: Estimated Void Large # Bowel Movements 0 Estimated Stool Amount Large # Voids 2 2 Assessment: [S/P ORIF with cep nailing by on 11/02/2017 ] Plan: [- Continue with WBAT - Continue with PT/OT - Continue with lvoenox x 1 month - Hospitalists co - managing - Awaiting placement. ]
--- NOTE | 2017-11-08 14:06 | DS ---
CC: Dr. Carrillo, PCP * DATE OF ADMISSION: 10/31/2017. DATE OF DISCHARGE: 11/08/2017. PRINCIPAL DISCHARGE DIAGNOSES: 1. Fall. 2. Left intertrochanteric hip fracture. 3. Atrial fibrillation with rapid ventricular response. 4. Dementia. 5. Hypertension. DISCHARGE MEDICATIONS: 1. Lisinopril 10 mg daily. 2. Lovenox 60 mg subcutaneously q.12. 3. Toprol XL 50 mg daily. DIET AT THE TIME OF DISCHARGE: Mechanical ground with extra sauce. ACTIVITY: Weightbearing as tolerated. FOLLOW-UP NEEDED: Merle are to be removed on November 16. HOSPITAL COURSE BY PROBLEM: 1. Ms. Khanna came in to the hospital on 10/31/2017 after a fall at the [facility]. It was unclear whether she had syncope or a mechanical fall due to poor memory. When she presented to the emergency department, a CT head showed no hemorrhage, but a femur x-ray showed an angulated intertrochanteric fracture of the proximal left femur. Orthopedic Surgery was consulted and took her to the operating room on 11/02/2017 for an ORIF. The procedure was without complications, except when she developed A-fib with RVR. She was followed by Physical Therapy post-operatively and improved from a PT standpoint, however is being recommended for short-term rehab before returning to [facility]. She is to have the merle removed on November 16. 2. A-fib with RVR: This was noted postoperatively and resolved with Metoprolol. She is being started on Toprol XL 50 mg daily. She is receiving therapeutic anticoagulation for DVT prophylaxis perioperatively anyway, so she is anticoagulated for A-fib as well. She is to be anticoagulated for one month postoperatively from an Orthopedic standpoint, so at the end of the one month of therapeutic anticoagulation, her bleeding versus CVA risk should be reassessed and determined whether she should be continued on long-term anticoagulation. 3. Dementia: She was reported to be at her baseline during this hospitalization. DISPOSITION: Ms. Khanna is being discharged to [facility] on 11/08/2017. Please do not hesitate to call me with any questions or concerns about her admission or discharge. [id number]/[facility] #: [id number] [facility] HOSPITALBianka
== END 2017-11-08 13:50 | DRG 482 ==
LOC: SSU 20:06 → MEDTELE 11-02 22:34
PROVIDERS: ADMIT Internal Medicine; ATTEND Internal Medicine
PROC: 0QS704Z Reposition Left Upper Femur with Internal Fixation Device, Open Approach (ICD-10-PCS; principal; 2017-11-02 12:45)
PROC: 30233N1 Transfusion of Nonautologous Red Blood Cells into Peripheral Vein, Percutaneous Approach (ICD-10-PCS; 2017-11-03)
DX: S72.142A Displaced intertrochanteric fracture of left femur, initial encounter for closed fracture (principal); F03.90 Unspecified dementia, unspecified severity, without behavioral disturbance, psychotic disturbance, mood disturbance, and anxiety; I10 Essential (primary) hypertension; I08.3 Combined rheumatic disorders of mitral, aortic and tricuspid valves; I48.91 Unspecified atrial fibrillation; I27.20 Pulmonary hypertension, unspecified; M19.90 Unspecified osteoarthritis, unspecified site; M85.88 Other specified disorders of bone density and structure, other site; W17.89XA Other fall from one level to another, initial encounter; Z66 Do not resuscitate; E87.6 Hypokalemia; R13.10 Dysphagia, unspecified; D64.9 Anemia, unspecified; I95.9 Hypotension, unspecified; I44.0 Atrioventricular block, first degree; Y92.008 Other place in unspecified non-institutional (private) residence as the place of occurrence of the external cause; Z79.01 Long term (current) use of anticoagulants
CPT/HCPCS: 36415; 70450; 71045; 72125; 80048; 80162; 82565; 83735; 84443; 84484; 84520; 85025; 85610; 85730; 86850; 86900; 86901; 86922; 87086; 87641; 93005; 93306; A9270-GY; C1713; C1776; G8978-GP-CM; G8979-GP-CI; G8987-GO-CM; G8988-GO-CJ; J0153; J0690; J1160; J1644; J1650; J2250; J2270; J2400; J2704; J3010; J3475; J3490; P9040